=== PATIENT | male | born 1960 | race African-American/Black ===

== ENCOUNTER 2018-04-10 21:51 | Inpatient (IN) ==
[2018-04-10] MEDS ORDERED: Labetalol HCl Inj 100 MG/20 ML Vial IV.PUSH ONE (22:04)
--- NOTE | 2018-04-10 22:04 | ED ---
HPI General Chief complaint: Wound/Laceration Stated complaint: Medcial Time Seen by Provider: 04/10/18 21:54 Source: family Mode of arrival: EMS Limitations: other (The patient has a prior history of stroke with expressive aphasia) History of Present Illness HPI narrative: The patient is a 57 year old male who presents to the [facility] emergency department with a history of approximately 30-40 minutes prior to arrival standing up from the couch after watching television at which time his fiance noted that he was bleeding heavily from his neck. The patient has a recent history of carotid surgery on the left side on March 27 in [place]. She is unsure of what type of surgery was done, however she reports that it was done because of the blockage in the carotid artery. She reports that he does have a prior history of stroke in 2016 with residual weakness on his right side and an expressive aphasia. She reports that he has memory difficulties related to his prior stroke. She reports that in January he also had 2 small strokes. He is on Plavix because of his prior history of stroke. The patient was noted by fire rescue to have a pulsatile bleed from the left side of his neck. Pressure was applied. Bleeding was able to be controlled, however the patient was noted to have an expanding hematoma of the left side of the neck. The patient was noted to have an episode of what appeared to be possible seizure versus syncope upon ambulance services arrival to have an episode of syncope, versus seizure activity where his eyes rolled back in his head deviated to the right side associated with a brief episode of shaking. The patient reports having pain to the left side of his neck. The patient denies having any pain at any other location. On review of systems otherwise, patient denies having any chest pain, shortness of breath, abdominal pain, vomiting, or diarrhea. Related Data Allergies Allergy/AdvReac Type Severity Reaction Status Date / Time No Known Allergies Allergy Verified 04/10/18 21:54 Review of Systems ROS: all other systems reviewed are negative PMFSH History History Provided By: Family Member Social History Social History Substance History: No History of Abuse Second Hand Smoke Exposure: No Smoking Status: Never smoker How Often Do You Have a Drink Containing Alcohol: Never Recent Travel in [facility] within the Last 8 Weeks: No Recent Out of Country Travel within the Last 8 Weeks: No Exam Const General: cooperative and acute distress Nutritional Appearance: well nourished Orientation: alert and awake [facility] Head: normocephalic and atraumatic Nose: no nasal discharge and no epistaxis Mouth: moist mucous membranes Throat: posterior oropharynx normal and uvula midline Eyes Sclera: normal sclerae Pupils: PERRL Neck Neck: trachea midline, no JVD and other Resp Effort & Inspection: no use of accessory muscles Auscultation: clear to auscultation bilaterally Cardio Rate: regular rate Rhythm: regular rhythm Heart Sounds: no murmurs GI Inspection: non-distended Palpation: soft, no hepatosplenomegaly, no guarding, not rigid and nontender Auscultation: normal bowel sounds Back/Spine/Pelvis Back: no CVA tenderness Skin General: dry skin (warm) Neuro General: alert, awake and other (The patient has an expressive aphasia which reportedly has been present since his stroke in 2017. The patient has residual weakness of the right upper and right lower extremity also related to a prior stroke from 2017. No new neurologic findings according to the patient's family member at the bedside.) Speech: expressive aphasia Extrem General: normal to inspection (This pulses in all 4 extremities.), no calf tenderness, no clubbing, no cyanosis and edema (Trace pedal edema bilateral lower extremities.) Laterality: bilaterally Psych Mood: congruent mood Affect: normal affect Judgment: judgment good Course Initial Documented Vital Signs Pulse Rate 75 04/10/18 21:53 Respiratory Rate 17 04/10/18 21:53 Blood Pressure 179/88 H 04/10/18 21:53 Pulse Oximetry 100 04/10/18 21:53 Last Documented Vital Signs Temperature 98.9 F 04/11/18 04:00 Pulse Rate 98 H 04/11/18 04:00 Respiratory Rate 16 04/11/18 04:00 Blood Pressure 151/84 H 04/11/18 04:00 Pulse Oximetry 100 04/11/18 04:00 Critical Care Time Critical Care Time: Yes Total Critical Care Time: 32 Attestation: Aggregate critical care time was 32 minutes. Time to perform other separately billable procedures was not included in the critical care time. My time did not include minutes spent treating any other patients simultaneously or on activities that did not directly contribute to the patient's treatment. The services I provided to this patient were to treat and/or prevent clinically significant deterioration that could result in: Hemorrhagic shock, versus , versus respiratory failure from expanding hematoma I provided critical care services requiring my management, as noted below: Chart data review, documentation time, medication orders and management, vital sign assessments/reviewing monitor data, ordering and reviewing lab tests, ordering and interpreting/reviewing x-rays and diagnostic studies, care of the patient and discussion of the patient with the admitting physicians. Medical Decision Making MDM Narrative Medical decision making narrative: During the course of the patient's emergency department visit, the patient's history, examination, and differential diagnosis were reviewed with the patient and the patient's family at the bedside. The patient was placed on a alternative medicine practitioner with oximetry and frequent blood pressure monitoring. The patient had IV access obtained and blood work sent for analysis. Evaluation was started regarding the patient's pulsatile bleeding from the left side of his neck status post carotid surgery on the left. Emergency release blood will be obtained as there was reportedly an extensive amount of bleeding at the scene. The patient's initial blood pressure was noted to be 200 systolic, therefore labetalol will be administered at 10 mg IV. A call was urgently placed out to the vascular surgeon on-call, Dr. Rubin, I spoke to him at 9:50PM. He is on his way in to evaluate the patient. Direct pressure was able to be removed from the patient's left side of the neck and a hematoma was noted. No active bleeding was noted. Dr. Rubin requested that a CTA be ordered while he is on his way. The patient's diagnostic studies are remarkable for a white count of 9.2, hemoglobin 11.2, platelets 334 with a normal differential, PT 10, PTT 21.4, fibrinogen 466. Chemistry is remarkable for an i-STAT that shows a normal creatinine of 1.0, glucose 350. The patient's CTA of the neck shows no significant carotid stenosis, large hematoma in the left side of the neck measuring 4.8 x 3[address] Rubin arrived at the patient's bedside and is accompanying the patient urgently to the emergency OR for repair of his carotid. A call was placed out to the control systems eng. I spoke to Dr. Garces regarding this patient's case. He did evaluate the patient in the emergency department prior to the patient going to the OR. The patient's results were discussed with the patient, including the plan of care. I explained that further testing and/ or monitoring is indicated based on the patient's history, examination, and/ or laboratory findings. Therefore, I recommended admission for additional evaluation. The patient expressed understanding and was agreeable with this plan. The patient was admitted to the hospital in critical condition and sent to a bed under the care of the control systems eng with a consultation to . Medical Screen Exam Complete: Yes Emergency Medical Condition: Yes Medical Records Medical records reviewed: Yes I reviewed the patient's medical records. Lab Data Lab results reviewed: Yes I reviewed the patient's lab results. Result diagrams: 04/11/18 05:30 04/11/18 05:30 Lab Results 04/10/18 04/10/18 04/10/18 Range/Units 21:55 21:56 21:56 WBC (4.0-11.0) th/mm3 RBC (4.50-5.90) mil/mm3 Hgb (13.0-17.0) gm/dL POC Hgb (Calc) (13.0-17.0) g/dL Hct (39.0-51.0) % POC Hct (39-51.0) % MCV (80.0-100.0) fL MCH (27.0-34.0) pg MCHC (32.0-36.0) % RDW (11.6-17.2) % Plt Count (150-450) th/mm3 MPV (7.0-11.0) fL Neut % (Auto) (16.0-70.0) % Lymph % (Auto) (9.0-44.0) % Twiggs % (Auto) (0.0-8.0) % Eos % (Auto) (0.0-4.0) % Baso % (Auto) (0.0-2.0) % Neut # (Auto) (1.8-7.7) th/mm3 Lymph # (Auto) (1.0-4.8) th/mm3 Twiggs # (Auto) (0.0-0.9) th/mm3 Eos # (Auto) (0.0-0.4) th/mm3 Baso # (Auto) (0.0-0.2) th/mm3 WBC Differential Differential Comment PT (9.8-11.6) sec INR Ratio APTT (23.4-31.7) sec Fibrinogen Cancelled Puncture Site Patient Temperature O2 Saturation (90-100) % ABG pH (7.380-7.420) ABG pCO2 (38-42) mmHg ABG pO2 (61-120) mmHG ABG HCO3 (22-26) mmol/L ABG O2 Content (12.0-20.0) Vol % ABG Base Excess (-2-2) mmol/L ABG Methemoglobin (0-2) % Hemoglobin (12.0-16.0) G/DL Carboxyhemoglobin (0-4) % O2 Delivery Device Inspired O2 % Critical Value POC Sodium (137-144) mmol/L Sodium (136-145) meq/L POC Potassium (3.6-5.0) mmol/L Potassium (3.5-5.1) meq/L POC Chloride (102-111) mmol/L Chloride (98-107) meq/L Carbon Dioxide (21.0-32.0) meq/L Anion Gap (5-15) meq/L POC BUN (5-21) mg/dL BUN (7-18) mg/dL Creatinine (0.60-1.30) mg/dL POC Creatinine (0.6-1.3) mg/dL Estimated GFR (>89) mL/min POC Glucose 347 H (68-110) mg/dl Random Glucose (74-106) mg/dL Calcium (8.5-10.1) mg/dL Phosphorus (2.5-4.9) mg/dL Magnesium (1.5-2.5) mg/dL Total Bilirubin (0.2-1.0) mg/dL AST (15-37) U/L ALT (12-78) U/L Alkaline Phosphatase (45-117) U/L Troponin I (0.02-0.05) ng/mL Total Protein (6.4-8.2) g/dL Albumin (3.4-5.0) g/dL Blood Type B Positive Blood Type Recheck Required Antibody Screen Negative MTS Gel Crossmatch 04/10/18 04/10/18 04/10/18 Range/Units 21:56 21:56 21:56 WBC 9.2 (4.0-11.0) th/mm3 RBC 3.96 L (4.50-5.90) mil/mm3 Hgb 11.2 L (13.0-17.0) gm/dL POC Hgb (Calc) (13.0-17.0) g/dL Hct 32.2 L (39.0-51.0) % POC Hct (39-51.0) % MCV 81.4 (80.0-100.0) fL MCH 28.4 (27.0-34.0) pg MCHC 34.9 (32.0-36.0) % RDW 13.4 (11.6-17.2) % Plt Count 334 (150-450) th/mm3 MPV 7.1 (7.0-11.0) fL Neut % (Auto) 57.6 (16.0-70.0) % Lymph % (Auto) 33.0 (9.0-44.0) % Twiggs % (Auto) 6.4 (0.0-8.0) % Eos % (Auto) 2.4 (0.0-4.0) % Baso % (Auto) 0.6 (0.0-2.0) % Neut # (Auto) 5.3 (1.8-7.7) th/mm3 Lymph # (Auto) 3.0 (1.0-4.8) th/mm3 Twiggs # (Auto) 0.6 (0.0-0.9) th/mm3 Eos # (Auto) 0.2 (0.0-0.4) th/mm3 Baso # (Auto) 0.1 (0.0-0.2) th/mm3 WBC Differential . Differential Comment Auto diff final PT 10.0 (9.8-11.6) sec INR 1.0 Ratio APTT 21.4 L (23.4-31.7) sec Fibrinogen 466 H Puncture Site Patient Temperature O2 Saturation (90-100) % ABG pH (7.380-7.420) ABG pCO2 (38-42) mmHg ABG pO2 (61-120) mmHG ABG HCO3 (22-26) mmol/L ABG O2 Content (12.0-20.0) Vol % ABG Base Excess (-2-2) mmol/L ABG Methemoglobin (0-2) % Hemoglobin (12.0-16.0) G/DL Carboxyhemoglobin (0-4) % O2 Delivery Device Inspired O2 % Critical Value POC Sodium (137-144) mmol/L Sodium (136-145) meq/L POC Potassium (3.6-5.0) mmol/L Potassium (3.5-5.1) meq/L POC Chloride (102-111) mmol/L Chloride (98-107) meq/L Carbon Dioxide (21.0-32.0) meq/L Anion Gap (5-15) meq/L POC BUN (5-21) mg/dL BUN (7-18) mg/dL Creatinine (0.60-1.30) mg/dL POC Creatinine (0.6-1.3) mg/dL Estimated GFR (>89) mL/min POC Glucose (68-110) mg/dl Random Glucose (74-106) mg/dL Calcium (8.5-10.1) mg/dL Phosphorus (2.5-4.9) mg/dL Magnesium (1.5-2.5) mg/dL Total Bilirubin (0.2-1.0) mg/dL AST (15-37) U/L ALT (12-78) U/L Alkaline Phosphatase (45-117) U/L Troponin I Less than 0.02 L (0.02-0.05) ng/mL Total Protein (6.4-8.2) g/dL Albumin (3.4-5.0) g/dL Blood Type Blood Type Recheck Antibody Screen MTS Gel Crossmatch 04/10/18 04/10/18 04/10/18 Range/Units 21:56 23:14 23:29 WBC (4.0-11.0) th/mm3 RBC (4.50-5.90) mil/mm3 Hgb (13.0-17.0) gm/dL POC Hgb (Calc) 10.2 L (13.0-17.0) g/dL Hct (39.0-51.0) % POC Hct 30.0 L (39-51.0) % MCV (80.0-100.0) fL MCH (27.0-34.0) pg MCHC (32.0-36.0) % RDW (11.6-17.2) % Plt Count (150-450) th/mm3 MPV (7.0-11.0) fL Neut % (Auto) (16.0-70.0) % Lymph % (Auto) (9.0-44.0) % Twiggs % (Auto) (0.0-8.0) % Eos % (Auto) (0.0-4.0) % Baso % (Auto) (0.0-2.0) % Neut # (Auto) (1.8-7.7) th/mm3 Lymph # (Auto) (1.0-4.8) th/mm3 Twiggs # (Auto) (0.0-0.9) th/mm3 Eos # (Auto) (0.0-0.4) th/mm3 Baso # (Auto) (0.0-0.2) th/mm3 WBC Differential Differential Comment PT (9.8-11.6) sec INR Ratio APTT (23.4-31.7) sec Fibrinogen Puncture Site Art line Patient Temperature 98.6 O2 Saturation 97 (90-100) % ABG pH 7.42 (7.380-7.420) ABG pCO2 38 (38-42) mmHg ABG pO2 315 H (61-120) mmHG ABG HCO3 24 (22-26) mmol/L ABG O2 Content 16.9 (12.0-20.0) Vol % ABG Base Excess -0.2 (-2-2) mmol/L ABG Methemoglobin 2.0 (0-2) % Hemoglobin 11.9 L (12.0-16.0) G/DL Carboxyhemoglobin 0.5 (0-4) % O2 Delivery Device O.r. gas Inspired O2 % Critical Value No POC Sodium 138 (137-144) mmol/L Sodium (136-145) meq/L POC Potassium 3.7 (3.6-5.0) mmol/L Potassium (3.5-5.1) meq/L POC Chloride 99 L (102-111) mmol/L Chloride (98-107) meq/L Carbon Dioxide (21.0-32.0) meq/L Anion Gap (5-15) meq/L POC BUN 14 (5-21) mg/dL BUN (7-18) mg/dL Creatinine (0.60-1.30) mg/dL POC Creatinine 1.0 (0.6-1.3) mg/dL Estimated GFR (>89) mL/min POC Glucose 350 H (68-110) mg/dl Random Glucose (74-106) mg/dL Calcium (8.5-10.1) mg/dL Phosphorus (2.5-4.9) mg/dL Magnesium (1.5-2.5) mg/dL Total Bilirubin (0.2-1.0) mg/dL AST (15-37) U/L ALT (12-78) U/L Alkaline Phosphatase (45-117) U/L Troponin I (0.02-0.05) ng/mL Total Protein (6.4-8.2) g/dL Albumin (3.4-5.0) g/dL Blood Type Blood Type Recheck Antibody Screen MTS Gel Crossmatch See Detail 04/10/18 04/11/18 04/11/18 Range/Units 23:50 00:35 00:35 WBC 15.2 H D (4.0-11.0) th/mm3 RBC 3.20 L (4.50-5.90) mil/mm3 Hgb 9.0 L D (13.0-17.0) gm/dL POC Hgb (Calc) (13.0-17.0) g/dL Hct 25.9 L (39.0-51.0) % POC Hct (39-51.0) % MCV 81.1 (80.0-100.0) fL MCH 28.2 (27.0-34.0) pg MCHC 34.8 (32.0-36.0) % RDW 13.4 (11.6-17.2) % Plt Count 289 (150-450) th/mm3 MPV 7.2 (7.0-11.0) fL Neut % (Auto) 83.0 H (16.0-70.0) % Lymph % (Auto) 12.1 (9.0-44.0) % Twiggs % (Auto) 3.8 (0.0-8.0) % Eos % (Auto) 0.9 (0.0-4.0) % Baso % (Auto) 0.2 (0.0-2.0) % Neut # (Auto) 12.6 H (1.8-7.7) th/mm3 Lymph # (Auto) 1.8 (1.0-4.8) th/mm3 Twiggs # (Auto) 0.6 (0.0-0.9) th/mm3 Eos # (Auto) 0.1 (0.0-0.4) th/mm3 Baso # (Auto) 0.0 (0.0-0.2) th/mm3 WBC Differential . Differential Comment Auto diff final PT (9.8-11.6) sec INR Ratio APTT (23.4-31.7) sec Fibrinogen Puncture Site Art line Patient Temperature 98.6 O2 Saturation 97 (90-100) % ABG pH 7.47 H (7.380-7.420) ABG pCO2 33 L (38-42) mmHg ABG pO2 276 H (61-120) mmHG ABG HCO3 24 (22-26) mmol/L ABG O2 Content 13.9 (12.0-20.0) Vol % ABG Base Excess 0.4 (-2-2) mmol/L ABG Methemoglobin 2.0 (0-2) % Hemoglobin 9.7 L (12.0-16.0) G/DL Carboxyhemoglobin 0.8 (0-4) % O2 Delivery Device O.r. gas Inspired O2 50 % Critical Value No POC Sodium (137-144) mmol/L Sodium (136-145) meq/L POC Potassium (3.6-5.0) mmol/L Potassium (3.5-5.1) meq/L POC Chloride (102-111) mmol/L Chloride (98-107) meq/L Carbon Dioxide (21.0-32.0) meq/L Anion Gap (5-15) meq/L POC BUN (5-21) mg/dL BUN (7-18) mg/dL Creatinine (0.60-1.30) mg/dL POC Creatinine (0.6-1.3) mg/dL Estimated GFR (>89) mL/min POC Glucose (68-110) mg/dl Random Glucose (74-106) mg/dL Calcium (8.5-10.1) mg/dL Phosphorus (2.5-4.9) mg/dL Magnesium (1.5-2.5) mg/dL Total Bilirubin (0.2-1.0) mg/dL AST (15-37) U/L ALT (12-78) U/L Alkaline Phosphatase (45-117) U/L Troponin I (0.02-0.05) ng/mL Total Protein (6.4-8.2) g/dL Albumin (3.4-5.0) g/dL Blood Type Blood Type Recheck Antibody Screen MTS Gel Crossmatch See Detail 04/11/18 04/11/18 04/11/18 Range/Units 01:32 01:32 05:30 WBC 14.0 H 16.6 H (4.0-11.0) th/mm3 RBC 3.02 L 3.85 L (4.50-5.90) mil/mm3 Hgb 8.5 L 11.1 L D (13.0-17.0) gm/dL POC Hgb (Calc) (13.0-17.0) g/dL Hct 24.3 L 31.7 L (39.0-51.0) % POC Hct (39-51.0) % MCV 80.5 82.4 (80.0-100.0) fL MCH 28.2 28.8 (27.0-34.0) pg MCHC 35.0 35.0 (32.0-36.0) % RDW 13.4 13.2 (11.6-17.2) % Plt Count 236 276 (150-450) th/mm3 MPV 7.2 7.1 (7.0-11.0) fL Neut % (Auto) 83.9 H 87.7 H (16.0-70.0) % Lymph % (Auto) 11.0 8.2 L (9.0-44.0) % Twiggs % (Auto) 4.4 3.7 (0.0-8.0) % Eos % (Auto) 0.5 0.1 (0.0-4.0) % Baso % (Auto) 0.2 0.3 (0.0-2.0) % Neut # (Auto) 11.8 H 14.6 H (1.8-7.7) th/mm3 Lymph # (Auto) 1.6 1.4 (1.0-4.8) th/mm3 Twiggs # (Auto) 0.6 0.6 (0.0-0.9) th/mm3 Eos # (Auto) 0.1 0.0 (0.0-0.4) th/mm3 Baso # (Auto) 0.0 0.0 (0.0-0.2) th/mm3 WBC Differential . . Differential Comment Auto diff final Auto diff final PT (9.8-11.6) sec INR Ratio APTT (23.4-31.7) sec Fibrinogen Puncture Site Art line Patient Temperature 98.6 O2 Saturation 97 (90-100) % ABG pH 7.45 H (7.380-7.420) ABG pCO2 36 L (38-42) mmHg ABG pO2 269 H (61-120) mmHG ABG HCO3 25 (22-26) mmol/L ABG O2 Content 12.9 (12.0-20.0) Vol % ABG Base Excess 0.9 (-2-2) mmol/L ABG Methemoglobin 1.9 (0-2) % Hemoglobin 9.0 L (12.0-16.0) G/DL Carboxyhemoglobin 0.9 (0-4) % O2 Delivery Device O.r. gas Inspired O2 50 % Critical Value No POC Sodium (137-144) mmol/L Sodium (136-145) meq/L POC Potassium (3.6-5.0) mmol/L Potassium (3.5-5.1) meq/L POC Chloride (102-111) mmol/L Chloride (98-107) meq/L Carbon Dioxide (21.0-32.0) meq/L Anion Gap (5-15) meq/L POC BUN (5-21) mg/dL BUN (7-18) mg/dL Creatinine (0.60-1.30) mg/dL POC Creatinine (0.6-1.3) mg/dL Estimated GFR (>89) mL/min POC Glucose (68-110) mg/dl Random Glucose (74-106) mg/dL Calcium (8.5-10.1) mg/dL Phosphorus (2.5-4.9) mg/dL Magnesium (1.5-2.5) mg/dL Total Bilirubin (0.2-1.0) mg/dL AST (15-37) U/L ALT (12-78) U/L Alkaline Phosphatase (45-117) U/L Troponin I (0.02-0.05) ng/mL Total Protein (6.4-8.2) g/dL Albumin (3.4-5.0) g/dL Blood Type Blood Type Recheck Antibody Screen MTS Gel Crossmatch 04/11/18 04/11/18 Range/Units 05:30 05:30 WBC (4.0-11.0) th/mm3 RBC (4.50-5.90) mil/mm3 Hgb (13.0-17.0) gm/dL POC Hgb (Calc) (13.0-17.0) g/dL Hct (39.0-51.0) % POC Hct (39-51.0) % MCV (80.0-100.0) fL MCH (27.0-34.0) pg MCHC (32.0-36.0) % RDW (11.6-17.2) % Plt Count (150-450) th/mm3 MPV (7.0-11.0) fL Neut % (Auto) (16.0-70.0) % Lymph % (Auto) (9.0-44.0) % Twiggs % (Auto) (0.0-8.0) % Eos % (Auto) (0.0-4.0) % Baso % (Auto) (0.0-2.0) % Neut # (Auto) (1.8-7.7) th/mm3 Lymph # (Auto) (1.0-4.8) th/mm3 Twiggs # (Auto) (0.0-0.9) th/mm3 Eos # (Auto) (0.0-0.4) th/mm3 Baso # (Auto) (0.0-0.2) th/mm3 WBC Differential Differential Comment PT (9.8-11.6) sec INR Ratio APTT 24.4 (23.4-31.7) sec Fibrinogen Puncture Site Patient Temperature O2 Saturation (90-100) % ABG pH (7.380-7.420) ABG pCO2 (38-42) mmHg ABG pO2 (61-120) mmHG ABG HCO3 (22-26) mmol/L ABG O2 Content (12.0-20.0) Vol % ABG Base Excess (-2-2) mmol/L ABG Methemoglobin (0-2) % Hemoglobin (12.0-16.0) G/DL Carboxyhemoglobin (0-4) % O2 Delivery Device Inspired O2 % Critical Value POC Sodium (137-144) mmol/L Sodium 139 (136-145) meq/L POC Potassium (3.6-5.0) mmol/L Potassium 4.1 (3.5-5.1) meq/L POC Chloride (102-111) mmol/L Chloride 103 (98-107) meq/L Carbon Dioxide 27.0 (21.0-32.0) meq/L Anion Gap 9 (5-15) meq/L POC BUN (5-21) mg/dL BUN 13 (7-18) mg/dL Creatinine 0.99 (0.60-1.30) mg/dL POC Creatinine (0.6-1.3) mg/dL Estimated GFR Greater than 89 (>89) mL/min POC Glucose (68-110) mg/dl Random Glucose 370 H (74-106) mg/dL Calcium 8.1 L (8.5-10.1) mg/dL Phosphorus 3.8 (2.5-4.9) mg/dL Magnesium 1.8 (1.5-2.5) mg/dL Total Bilirubin 0.5 (0.2-1.0) mg/dL AST 9 L (15-37) U/L ALT 19 (12-78) U/L Alkaline Phosphatase 118 H (45-117) U/L Troponin I (0.02-0.05) ng/mL Total Protein 6.4 (6.4-8.2) g/dL Albumin 2.9 L (3.4-5.0) g/dL Blood Type Blood Type Recheck Antibody Screen MTS Gel Crossmatch Imaging Data Radiologist's impression: Neck CTA 04/10/18 21:58 CONCLUSION: 1. No significant carotid stenosis. 2. Large hematoma left neck. Discharge Plan Discharge Disposition Patient Disposition: ED Admit(ED Internal Use Only) Discharge Order Discharge Orders: ED Use Only Admit Order (Routine); Ordered 04/10/18 Ordered By: Jessica Liz Discharge Details Diagnosis: Arterial hemorrhage, Post-op bleeding Physicians Team ED Provider: Jessica Liz Primary Care Provider: Primary Care Quin Kohler Attending Provider: Hernandez Garces Other Providers: Ray Rubin Status ED Status: Left Department Discharge Information Discharge Date/Time: 04/10/18 22:52
[2018-04-10 22:13] LABS: Baso # (Auto) 0.1 th/mm3 (0.0-0.2); Baso % (Auto) 0.6 % (0.0-2.0); Eos # (Auto) 0.2 th/mm3 (0.0-0.4); Eos % (Auto) 2.4 % (0.0-4.0); Hematocrit 32.2 % (39.0-51.0); Hemoglobin 11.2 gm/dL (13.0-17.0); Mean Corpuscular HGB Conc 34.9 % (32.0-36.0); Mean Corpuscular Hemoglobin 28.4 pg (27.0-34.0); Mean Corpuscular Volume 81.4 fL (80.0-100.0); Mean Platelet Volume 7.1 fL (7.0-11.0); Mono # (Auto) 0.6 th/mm3 (0.0-0.9); Mono % (Auto) 6.4 % (0.0-8.0); Neut # (Auto) 5.3 th/mm3 (1.8-7.7); Neut % (Auto) 57.6 % (16.0-70.0); Platelet Count 334 th/mm3 (150-450); Red Blood Count 3.96 mil/mm3 (4.50-5.90); Red Cell Distribution Width 13.4 % (11.6-17.2); White Blood Count 9.2 th/mm3 (4.0-11.0)
[2018-04-10] MEDS ORDERED: fentaNYL Citrate Inj 100 MCG/2 ML Ampul IV.PUSH ONE (22:20)
[2018-04-10] MEDS ORDERED: Heparin - SQ 10,000 UNITS/ML Vial ONE (22:28)
[2018-04-10] MEDS ORDERED: Heparin 10,000 UNITS/10 ML Vial (for IV use) ONE (22:28)
[2018-04-10] MEDS ORDERED: Thrombin Topical 20,000 UNIT Spray Kit TOPICAL ONE ×2 (22:28→22:41)
--- NOTE | 2018-04-10 22:30 | CT ---
EXAM DATE: 04/10/2018 10:23 PM EST AGE/SEX: 57 years / Male INDICATIONS: Recent left sided endartectomy that may have bleed out. CLINICAL DATA: This is the patient's initial encounter. Patient reports that signs and symptoms have been present for 1 day and indicates a pain score of 7/10. MEDICAL/SURGICAL HISTORY: . unable to get hx STAT exam . endartectomy Hernandez RADIATION DOSE: 28.74 CTDI (mGy) COMPARISON: No prior exams available for comparison. TECHNIQUE: Volumetric scanning was performed using a multirow detector CT scanner during bolus infus ion of 100ml ml Omnipaque 350 (iohexol) nonionic water-soluble contrast as a single exam dose. The data was postprocessed with a variety of visualization algorithms including full-volume maximum inte nsity projection, multiplanar sliding thin-slab reformation, curved-planar reformation, and surface-r endering techniques. Using automated exposure control and adjustment of the mA and/or kV according t o patient size, radiation dose was kept as low as reasonably achievable to obtain optimal diagnostic quality images. DICOM format image data is available electronically for review and comparison. FINDINGS: Aortic Arch: There is a three-vessel origin of the great vessels from the aorta. No evidence of ost ial narrowing Right Carotid: The common carotid artery is intact. Mild atherosclerotic changes within the proximal right internal carotid artery without stenosis. The external carotid artery is intact. Left Carotid: The common carotid artery is intact. Left carotid endarterectomy. No significant narro wing or stenosis. The external carotid artery is intact. Vertebrals: The vertebral arteries have a symmetric diameter. No stenotic lesions are seen. Other: Large hematoma in the left neck measures 4.8 x 3.9 x 5.7 cm. No extravasation of contrast. The re is some minimal gas in the soft tissues likely related to recent surgery. Percent stenosis is calculated using the diameter of the stenotic region over the diameter of the nor mal distal internal carotid artery. CONCLUSION: 1. No significant carotid stenosis. 2. Large hematoma left neck. Electronically signed by: Chi Francis MD Board Certified Radiologist 04/10/2018 10:29 PM EST
[2018-04-10] MEDS ORDERED: Bupivacaine 0.5% Inj 50 ML MDV Vial ONE (22:33)
[2018-04-10 22:35] LABS: Activated Partial Thrombo Time 21.4 sec (23.4-31.7)
[2018-04-10] MEDS ORDERED: Temazepam 15 MG Capsule PO PRN (22:35)
[2018-04-10] MEDS ORDERED: Bisacodyl 10 MG Supp RECTAL PRN (22:35)
--- NOTE | 2018-04-10 22:35 | P.HPCC ---
History of Present Illness Primary Care Physician: No Primary Care Physician History of Present Illness: 57 year old male presents with a history of approximately 30-40 minutes prior to arrival standing up from the couch after watching television at which time his fiance noted that he was bleeding heavily from his neck. The patient has a recent history of carotid surgery on the left side on March 27 in [place]. She is unsure of what type of surgery was done, however she reports that it was done because of the blockage in the carotid artery. 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 His fiance reports that he has memory difficulties related to his prior stroke. She reports that in January he also had 2 small strokes. He is on Plavix because of his prior history of stroke. The patient was noted by fire rescue to have a pulsatile bleed from the left side of his neck. Pressure was applied. Bleeding was able to be controlled, however the patient was noted to have an expanding hematoma of the left side of the neck. The patient was noted to have an episode of what appeared to be possible seizure versus syncope upon ambulance services arrival to have an episode of syncope, versus seizure activity where his eyes rolled back in his head deviated to the right side associated with a brief episode of shaking. He was taken emergently to operating room for excision of left carotid artery, left CCA to ICA bypass with 6mm PTFE and evacuation of edema. Inpatient Certification: I certify that the inpatient services were ordered in accordance with Medicare regulations governing the order. This includes certification that hospital inpatient services are reasonable and necessary and in the case of services not specified as inpatient-only under 42 CFR 419.22(n), that they are appropriately provided as inpatient services in accordance to with the 2-midnight benchmark under 43 CFR 412.3(e) Review of Systems unobtainable due to mental condition, unobtainable due to mental status PMFSH - History History Provided By: Family Member - Medical History Medical History: Medical History (Last Updated 04/10/18 @ 22:49 by Ray Rubin MD) Diabetes Hypertension Stroke - Surgical History Surgical History: Surgical History (Last Updated 04/10/18 @ 22:11 by Jessica Liz MD) Status post carotid surgery - Travel History Recent Travel in the [place] Within the Last 8 Weeks: No Recent Travel Out of the Country Within the Last 8 Weeks: No Medications and Allergies Active Medications: Active Medications Current Medications Acetaminophen (Tylenol) 650 mg PO Q6H PRN PRN Reason: PAIN 1-10 AND/OR FEVER >101F Al Hydroxide/Mg Hydroxide (Milk Of Magnesia Liq) 30 ml PO Q12H PRN PRN Reason: Mild Constipation Albuterol (Duoneb Neb (Prn)) 1 ampul NEB Q2HR NEB PRN PRN Reason: WHEEZING Bisacodyl (Dulcolax Supp) 10 mg RECTAL DAILY PRN PRN Reason: SEVERE CONSITIPATION Chlorhexidine Gluconate (Chlorhexidine 2% Cloth) 3 pack TOPICAL DAILY@0400 DIANE Stop: 04/16/18 03:59 Chlorhexidine Gluconate (Chlorhexidine 2% Cloth) 3 pack TOPICAL DAILY@0400 PRN PRN Reason: Extra cloth needed Stop: 04/16/18 03:59 Famotidine (Pepcid Pf Inj) 20 mg IV.PUSH Q12HR DIANE Hydromorphone HCl (Dilaudid Pf Inj) 1 mg IV.PUSH Q4H PRN PRN Reason: PAIN SCALE 6 TO 10 Sodium Chloride (Ns Inj) 1,000 mls @ 84 mls/hr IV.CONT .[id number] DIANE Last Admin: 04/11/18 03:23 Dose: 84 mls/hr Vancomycin HCl 1,000 mg/ (Sodium Chloride) 250 mls @ 250 mls/hr IV.SIG Q12H DIANE Piperacillin/Tazobactam/Dextrose (Zosyn 3.375 Gm Premix) 3.375 gm in 50 mls @ 100 mls/hr IV.SIG Q6H DIANE Lactulose (Lactulose Liq) 30 ml PO DAILY PRN PRN Reason: SEVERE CONSITIPATION Ondansetron HCl (Zofran Inj) 4 mg IV.PUSH Q6H PRN PRN Reason: NAUSEA OR VOMITING Senna/Docusate Sodium (Viviane-Colace) 1 tab PO BID DIANE Sennosides (Senokot) 17.2 mg PO Q12H PRN PRN Reason: Moderate Constipation Sodium Chloride (Ns Flush) 2 ml IV.FLUSH BID DIANE Sodium Chloride (Ns Flush) 2 ml IV.FLUSH PRN PRN PRN Reason: FLUSH AFTER USING IV ACCESS Temazepam (Restoril) 15 mg PO HS PRN PRN Reason: INSOMNIA Allergies Allergy/AdvReac Type Severity Reaction Status Date / Time No Known Allergies Allergy Verified 04/10/18 21:54 Results - Labs CBC & Chem 7: 04/11/18 01:32 Labs: Short CBC 04/10/18 Range/Units 21:56 WBC 9.2 (4.0-11.0) th/mm3 Hgb 11.2 L (13.0-17.0) gm/dL Hct 32.2 L (39.0-51.0) % Plt Count 334 (150-450) th/mm3 Cardiac Enzymes 04/10/18 Range/Units 21:56 Troponin I Less than 0.02 L (0.02-0.05) ng/mL - Imaging Impressions Neck CTA 04/10/18 21:58 CONCLUSION: 1. No significant carotid stenosis. 2. Large hematoma left neck. Exam Vital signs: Vital Signs 04/10/18 21:53 Pulse Rate 75 Respiratory Rate 17 Blood Pressure 179/88 H Pulse Oximetry 100 Intake & Output 04/10/18 04/10/18 04/11/18 06:59 18:59 06:59 Weight 72.575 kg - Constitutional moderate distress - Routine HEENT Exam Head: Present: atraumatic Eye: Present: normal accommodation ENT: Present: mucous membranes moist - Routine Neck Exam Absent: JVD, carotid bruit Comments: Status post left carotid bypass surgery, dressing without active extravasation. - Routine Respiratory Exam Absent: accessory muscle use, wheezes, crackles - Routine Cardiovascular Exam Present: RRR, S1, S2 - Routine Abdominal Exam Present: soft, normoactive bowel sounds - Routine Extremities Exam Absent: cyanosis, clubbing, edema - Routine Skin Exam Absent: cyanosis, erythema - Routine Neurological Exam Present: alert Septic Shock Reassessment Septic shock perfusion: reassessment completed Caprini VTE Risk Assessment Caprini VTE Risk Assessment: Moderate/High Risk (score >= 2) Caprini Risk Assessment Model: Point Value = 1 Point Value = 2 Point Value = 3 Point Value = 5 Age 41-60 Minor surgery BMI > 25 kg/m2 Swollen legs Varicose veins or History of unexplained or recurrent spontaneous Oral contraceptives or hormone replacement Sepsis (< 1 month) Serious lung disease, including pneumonia (< 1 month) Abnormal pulmonary function Acute myocardial infarction Congestive heart failure (< 1 month) History of inflammatory bowel disease Medical patient at bed rest Age 61-74 Arthroscopic surgery Major open surgery (> 45 min) Laparoscopic surgery (> 45 min) Malignancy Confined to bed (> 72 hours) Immobilizing plaster cast Central venous access Age >= 75 History of VTE Family history of VTE Factor V Leiden Prothrombin [id number] Lupus anticoagulant Anticardiolipin antibodies Elevated serum homocysteine Heparin-induced thrombocytopenia Other congenital or acquired thrombophilia Stroke (< 1 month) Elective arthroplasty Hip, pelvis, or leg fracture Acute spinal cord injury (< 1 month) Prophylaxis Regimen: Total Risk Factor Score Risk Level Prophylaxis Regimen 0-1 Low Early ambulation 2 Moderate Order ONE of the following: *Sequential Compression Device (SCD) *Heparin 5000 units SQ BID 3-4 Higher Order ONE of the following medications: *Heparin 5000 units SQ TID *Enoxaparin/Lovenox 40 mg SQ daily (WT < 150 kg, CrCl > 30 mL/min) *Enoxaparin/Lovenox 30 mg SQ daily (WT < 150 kg, CrCl > 10-29 mL/min) *Enoxaparin/Lovenox 30 mg SQ BID (WT < 150 kg, CrCl > 30 mL/min) AND/OR *Sequential Compression Device (SCD) 5 or more Highest Order ONE of the following medications: *Heparin 5000 units SQ TID (Preferred with Epidurals) *Enoxaparin/Lovenox 40 mg SQ daily (WT < 150 kg, CrCl > 30 mL/min) *Enoxaparin/Lovenox 30 mg SQ daily (WT < 150 kg, CrCl > 10-29 mL/min) *Enoxaparin/Lovenox 30 mg SQ BID (WT < 150 kg, CrCl > 30 mL/min) AND *Sequential Compression Device (SCD) Assessment and Plan - Assessment and Plan Plan: Acute post-operative left carotid hemorrhage -Status post Emergent neck exploration -CCA-ICA bypass -Possible prior surgery wound infection -Broad-spectrum antibiotic -BP control with SBP goal 140-160 -Further management per vascular surgery Prior surgery wound infection -Vancomycin/Zosyn -Blood cultures -Follow-up and de-escalate per sensitivity Diabetes -Insulin sliding scale Hypertension -Cleviprex drip as needed to keep SBP 140-160 Dyslipidemia -Atorvastatin DVT GI prophylaxis -Teds SCDs -Pharmacological DVT prophylaxis per vascular surgery -Pepcid 35 minutes of critical care
[2018-04-10] MEDS ORDERED: fentaNYL Citrate Inj 250 MCG/5 ML Ampul ONE (22:36)
[2018-04-10] MEDS ORDERED: Labetalol HCl Inj 20 MG/4 ML Vial IV.PUSH ONE (22:45)
--- NOTE | 2018-04-10 22:52 | P.CONVS ---
History of Present Illness Service: vascular surgery Consult date: 04/10/18 Reason for Consult: bleeding LEFT carotid Primary Care Provider: No Primary Care Physician Chief Complaint: 57 yo male with impressive LEFT neck bleeding History of Present Illness: 57 yo male with h/o L CEA 03/27 at OSH, was on couch this evening and had impressive bleeding from LEFT neck, pressure held and brought to ED. More pressure held and now has stable, firm LEFT neck hematoma. No airway compromise Has h/o CVA with mild RIGHT sided weakness. Much of history obtained from fiance who accompanies him Review of Systems All other systems reviewed negative except as stated in HPI PMFSH - History History Provided By: Family Member - Medical History Medical History: Medical History (Last Updated 04/10/18 @ 22:49 by Ray Rubin MD) Diabetes Hypertension Stroke - Surgical History Surgical History: Surgical History (Last Updated 04/10/18 @ 22:11 by Jessica Liz MD) Status post carotid surgery - Travel History Recent Travel in the [place] Within the Last 8 Weeks: No Recent Travel Out of the Country Within the Last 8 Weeks: No Medications and Allergies Active Medications: Active Medications Acetaminophen (Tylenol) 650 mg PO Q6H PRN PRN Reason: PAIN 1-10 AND/OR FEVER >101F Al Hydroxide/Mg Hydroxide (Milk Of Magnesia Liq) 30 ml PO Q12H PRN PRN Reason: Mild Constipation Albuterol (Duoneb Neb (Prn)) 1 ampul NEB Q2HR NEB PRN PRN Reason: WHEEZING Bisacodyl (Dulcolax Supp) 10 mg RECTAL DAILY PRN PRN Reason: SEVERE CONSITIPATION Chlorhexidine Gluconate (Chlorhexidine 2% Cloth) 3 pack TOPICAL DAILY@0400 DIANE Stop: 04/16/18 03:59 Chlorhexidine Gluconate (Chlorhexidine 2% Cloth) 3 pack TOPICAL DAILY@0400 PRN PRN Reason: Extra cloth needed Stop: 04/16/18 03:59 Famotidine (Pepcid Pf Inj) 20 mg IV.PUSH Q12HR DIANE Hydromorphone HCl (Dilaudid Pf Inj) 1 mg IV.PUSH Q4H PRN PRN Reason: PAIN SCALE 6 TO 10 Sodium Chloride (Ns Inj) 1,000 mls @ 84 mls/hr IV.CONT .[id number] DIANE Lactulose (Lactulose Liq) 30 ml PO DAILY PRN PRN Reason: SEVERE CONSITIPATION Ondansetron HCl (Zofran Inj) 4 mg IV.PUSH Q6H PRN PRN Reason: NAUSEA OR VOMITING Senna/Docusate Sodium (Viviane-Colace) 1 tab PO BID DIANE Sennosides (Senokot) 17.2 mg PO Q12H PRN PRN Reason: Moderate Constipation Sodium Chloride (Ns Flush) 2 ml IV.FLUSH BID DIANE Sodium Chloride (Ns Flush) 2 ml IV.FLUSH PRN PRN PRN Reason: FLUSH AFTER USING IV ACCESS Temazepam (Restoril) 15 mg PO HS PRN PRN Reason: INSOMNIA Allergies Allergy/AdvReac Type Severity Reaction Status Date / Time No Known Allergies Allergy Verified 04/10/18 21:54 Physical Exam Vital Signs / I&O: Vital Signs 04/10/18 21:53 Pulse Rate 75 Respiratory Rate 17 Blood Pressure 179/88 H Pulse Oximetry 100 Intake & Output 04/10/18 04/10/18 04/11/18 06:59 18:59 06:59 Weight 72.575 kg Neuro: alert, answers questions R sided weakness, 4/5 HEENT: NC/AT; LEFT neck hematoma ,tense oblique LEFT neck incision Heart: reg rate Lungs: nonlabored Vascular: palpable UE pulses Laboratory Results - last 24 hr 04/10/18 04/10/18 04/10/18 21:56 21:56 21:56 WBC RBC Hgb POC Hgb (Calc) Hct POC Hct MCV MCH MCHC RDW Plt Count MPV Neut % (Auto) Lymph % (Auto) [place] % (Auto) Eos % (Auto) Baso % (Auto) Neut # (Auto) Lymph # (Auto) [place] # (Auto) Eos # (Auto) Baso # (Auto) WBC Differential Differential Comment PT INR APTT Fibrinogen Cancelled POC Sodium POC Potassium POC Chloride POC BUN POC Creatinine POC Glucose 347 H Troponin I Less than 0.02 L 04/10/18 04/10/18 04/10/18 21:56 21:56 21:56 WBC 9.2 RBC 3.96 L Hgb 11.2 L POC Hgb (Calc) 10.2 L Hct 32.2 L POC Hct 30.0 L MCV 81.4 MCH 28.4 MCHC 34.9 RDW 13.4 Plt Count 334 MPV 7.1 Neut % (Auto) 57.6 Lymph % (Auto) 33.0 [place] % (Auto) 6.4 Eos % (Auto) 2.4 Baso % (Auto) 0.6 Neut # (Auto) 5.3 Lymph # (Auto) 3.0 [place] # (Auto) 0.6 Eos # (Auto) 0.2 Baso # (Auto) 0.1 WBC Differential . Differential Comment Auto diff final PT 10.0 INR 1.0 APTT 21.4 L Fibrinogen 466 H POC Sodium 138 POC Potassium 3.7 POC Chloride 99 L POC BUN 14 POC Creatinine 1.0 POC Glucose 350 H Troponin I Impressions Neck CTA 04/10/18 21:58 CONCLUSION: 1. No significant carotid stenosis. 2. Large hematoma left neck. Assessment and Plan - Plan acute post-operative LEFT carotid hemorrhage Emergent neck exploration and likely CCA-ICA bypass discussed risks with patient and fiance. To OR emergently. Fiance [phone]
[2018-04-10] MEDS ORDERED: Succinylcholine Inj 100 MG/5 ML Syringe IV.PUSH ONE (22:56)
[2018-04-10] MEDS ORDERED: Phenylephrine/NS 1000 MCG/10ML Syringe IV.PUSH ONE (22:56)
[2018-04-10] MEDS ORDERED: Normosol-R pH 7.4 Inj 3,000 ML IV.CONT ONE (22:56)
[2018-04-10] MEDS ORDERED: Lidocaine PF 1% Inj 5 ML Syringe OTHER ONE (22:56)
[2018-04-10] MEDS ORDERED: Glycopyrrolate Inj 1 MG/5 ML Syringe IV.PUSH ONE (22:56)
[2018-04-10] MEDS ORDERED: Sodium Chlor 0.9% Inj 500 ML IV.CONT ONE (22:56)
[2018-04-10 23:28] LABS: ABG Base Excess -0.2 mmol/L (-2-2); ABG PCO2 38 mmHg (38-42); ABG PO2 315 mmHG (61-120)
[2018-04-10] MEDS ORDERED: Clevidipine Inj 25 MG/50 ML VIAL ONE (23:43)
[2018-04-10] MEDS ORDERED: Sugammadex Inj 200 MG/2 ML Vial IV.PUSH ONE (23:43)
[2018-04-11] MEDS ORDERED: Heparin - SQ 10,000 UNITS/ML Vial ONE (00:31)
[2018-04-11] MEDS ORDERED: Heparin 10,000 UNITS/10 ML Vial (for IV use) ONE (00:32)
[2018-04-11 00:46] LABS: ABG Base Excess 0.4 mmol/L (-2-2); ABG PCO2 33 mmHg (38-42); ABG PO2 276 mmHG (61-120)
[2018-04-11 00:49] LABS: Baso % (Auto) 0.2 % (0.0-2.0); Eos # (Auto) 0.1 th/mm3 (0.0-0.4); Eos % (Auto) 0.9 % (0.0-4.0); Hematocrit 25.9 % (39.0-51.0); Lymph # (Auto) 1.8 th/mm3 (1.0-4.8); Lymph % (Auto) 12.1 % (9.0-44.0); Mean Corpuscular HGB Conc 34.8 % (32.0-36.0); Mean Corpuscular Hemoglobin 28.2 pg (27.0-34.0); Mean Corpuscular Volume 81.1 fL (80.0-100.0); Mean Platelet Volume 7.2 fL (7.0-11.0); Mono # (Auto) 0.6 th/mm3 (0.0-0.9); Mono % (Auto) 3.8 % (0.0-8.0); Neut # (Auto) 12.6 th/mm3 (1.8-7.7); Platelet Count 289 th/mm3 (150-450); Red Cell Distribution Width 13.4 % (11.6-17.2); White Blood Count 15.2 th/mm3 (4.0-11.0)
[2018-04-11] MEDS ORDERED: Protamine Sulfate Inj 50 MG/5 ML Vial ONE ×2 (01:07)
[2018-04-11] MEDS ORDERED: Thrombin Topical 20,000 UNIT Spray Kit TOPICAL ONE (01:16)
[2018-04-11] MEDS ORDERED: Thrombin Topical Soln 20,000 UNIT Vial TOPICAL ONE (01:26)
[2018-04-11 01:45] LABS: ABG Base Excess 0.9 mmol/L (-2-2); ABG PCO2 36 mmHg (38-42); ABG PO2 269 mmHG (61-120)
[2018-04-11 01:59] LABS: Baso % (Auto) 0.2 % (0.0-2.0); Eos # (Auto) 0.1 th/mm3 (0.0-0.4); Eos % (Auto) 0.5 % (0.0-4.0); Hematocrit 24.3 % (39.0-51.0); Hemoglobin 8.5 gm/dL (13.0-17.0); Lymph # (Auto) 1.6 th/mm3 (1.0-4.8); Mean Corpuscular Hemoglobin 28.2 pg (27.0-34.0); Mean Corpuscular Volume 80.5 fL (80.0-100.0); Mean Platelet Volume 7.2 fL (7.0-11.0); Mono # (Auto) 0.6 th/mm3 (0.0-0.9); Mono % (Auto) 4.4 % (0.0-8.0); Neut # (Auto) 11.8 th/mm3 (1.8-7.7); Neut % (Auto) 83.9 % (16.0-70.0); Platelet Count 236 th/mm3 (150-450); Red Blood Count 3.02 mil/mm3 (4.50-5.90); Red Cell Distribution Width 13.4 % (11.6-17.2)
--- NOTE | 2018-04-11 02:01 | P.OP ---
- Preoperative Diagnosis (1) Arterial hemorrhage (2) Post-op bleeding Date of procedure: 04/11/18 Procedure: 1. Excision of LEFT carotid artery 2. L CCA to ICA bypass with 6mm PTFE 3. Evacuation of hematoma Implants: 6mm PTFE Anesthesia: GETA Surgeon: Ray Rubin MD Shot Coat Tender: Audrey Leslie Estimated blood loss (mL): 1,200 IV fluids (mL): 3,800 Urine output (mL): 500 Pathology: other (hematoma for cultures) Operation and Findings: disrupted carotid patch with large hematoma excised entire carotid and performed bypass from CCA to ICA + Doppler signal in distal ICA at end of case
[2018-04-11] MEDS ORDERED: Morphine Inj 4 MG/ML Vial ONE (02:57)
[2018-04-11] MEDS: Sod Chloride 0.9% Inj 1,000 ML IV.CONT SCH ×2 (03:23→09:40)
[2018-04-11] MEDS ORDERED: Vancomycin Consult Pharmacy OTHER PRN (03:55)
[2018-04-11] MEDS ORDERED: Chlorhexidine Gluconate 2% 1 Pack (2 Cloths) TOPICAL PRN (04:00)
[2018-04-11] MEDS: Piperacil/Tazo 3.375 GM Premix 3.375 GM/50 ML PIGGYBACK IV.SIG SCH ×4 (04:14→21:06)
[2018-04-11] MEDS ORDERED: Clevidipine Inj 25 MG/50 ML VIAL ONE (04:26)
[2018-04-11] MEDS: Chlorhexidine Gluconate 2% 1 Pack (2 Cloths) TOPICAL SCH (05:16)
[2018-04-11] MEDS: Clevidipine Inj 25 MG/50 ML VIAL IV.CONT PRN ×8 (05:16→23:40)
[2018-04-11 05:59] LABS: Baso % (Auto) 0.3 % (0.0-2.0); Eos % (Auto) 0.1 % (0.0-4.0); Hematocrit 31.7 % (39.0-51.0); Hemoglobin 11.1 gm/dL (13.0-17.0); Lymph # (Auto) 1.4 th/mm3 (1.0-4.8); Lymph % (Auto) 8.2 % (9.0-44.0); Mean Corpuscular Hemoglobin 28.8 pg (27.0-34.0); Mean Corpuscular Volume 82.4 fL (80.0-100.0); Mean Platelet Volume 7.1 fL (7.0-11.0); Mono # (Auto) 0.6 th/mm3 (0.0-0.9); Mono % (Auto) 3.7 % (0.0-8.0); Neut # (Auto) 14.6 th/mm3 (1.8-7.7); Neut % (Auto) 87.7 % (16.0-70.0); Platelet Count 276 th/mm3 (150-450); Red Blood Count 3.85 mil/mm3 (4.50-5.90); Red Cell Distribution Width 13.2 % (11.6-17.2); White Blood Count 16.6 th/mm3 (4.0-11.0)
[2018-04-11 06:23] LABS: Albumin 2.9 g/dL (3.4-5.0); Anion Gap 9 meq/L (5-15); Aspartate Aminotransferase 9 U/L (15-37); Blood Urea Nitrogen 13 mg/dL (7-18); Calcium 8.1 mg/dL (8.5-10.1); Chloride 103 meq/L (98-107); Glomerular Filtration Rate Greater Than 89 mL/min (>89); Glucose,Random 370 mg/dL (74-106); Magnesium 1.8 mg/dL (1.5-2.5); Potassium 4.1 meq/L (3.5-5.1); Sodium 139 meq/L (136-145)
[2018-04-11 06:26] LABS: Alanine Aminotransferase 19 U/L (12-78); Alkaline Phosphatase 118 U/L (45-117); Phosphorus 3.8 mg/dL (2.5-4.9); Total Protein 6.4 g/dL (6.4-8.2)
--- NOTE | 2018-04-11 08:40 | MP ---
cc: Ray Rubin MD DATE OF OPERATION: PREOPERATIVE DIAGNOSIS: Carotid exsanguination, likely infected carotid patch . POSTOPERATIVE DIAGNOSIS: Carotid exsanguination, likely infected carotid patch. PROCEDURE PERFORMED: 1. Excision of infected left carotid artery. 2. Common carotid artery to internal carotid artery bypass with 6 mm PTFE. 3. Evacuation of neck hematoma. ATTENDING SURGEON: Ray Rubin MD. PRINT LINE SUPERVISOR SURGEON: Audrey Leslie. ANESTHESIA: General. INDICATIONS: Mr. Boo is a 57-year-old gentleman with a history of multiple strokes and residual right-sided weakness, who underwent a left carotid endarterectomy on 03/27 at an outside institution. He presented with a sentinel near exsanguinating hemorrhage from his left neck and manual pressure was held. I met him in the emergency department. He was taken to the operating room emergently for carotid exploration and revision. Intraoperatively, it was found that he had poor healing around his carotid patch. The patch had significant amount of hematoma around it and the entire patch was excised with the external carotid artery being ligated. A bypass was performed from the common carotid to the internal carotid artery. DESCRIPTION OF PROCEDURE: Informed consent was discussed with the patient, but it was an emergency procedure and so no formal consent was obtained. However, 2 attending surgeons agreed this is a surgical life saving emergency. The patient was taken to the operating room and placed supine on the operating table. An appropriate timeout was taken to ensure the patient's identity, operative site, and planned procedure. One gram of vancomycin was initiated prior to skin incision and will be continued postoperatively for ongoing therapy. Everyone in the room agreed with the timeout and we proceeded. His left neck was prepped and draped and a transverse incision was made just above the clavicle, carried down through subcutaneous tissue with electrocautery. The head of the sternocleidomastoid was divided and the common carotid artery was identified and encircled with a vessel loop, thereby obtaining proximal control. We then extended the incision cranially along the previous incision and a large hematoma was encountered. The patient was systemically heparinized; and throughout the remainder of the case, the ACT was maintained greater than 250. Proximal control of the common carotid artery at base of neck was obtained with a profunda clamp and the entire carotid hematoma periarterial hematoma was evacuated and the sample sent for culture. Dense scar tissue was noted; and with tedious dissection, we were able to dissect out the entire common and internal carotid arteries and circumferentially distally above the previous patch, which was noted to be frankly disrupted. The patch had to be temporized with several Prolene sutures for hemostasis. The distal ICA was then clamped and the #11 blade was used to incise the previous bovine pericardial patch. The external carotid artery was oversewn from the inside with 4-0 and 5-0 Prolene suture. The common carotid artery and internal carotid artery were resected, including the previous patch. The internal distally was bevelled as was the common carotid artery proximally and 6 mm PTFE was brought up onto the field and sewn end-to-end by beveling the PTFE and performing an end-to-end anastomosis with running 6-0 Prolene suture. We then cut the graft to an appropriate length, doubled it, and sewn end-to-end to the common carotid artery proximally with running 5-0 Prolene suture. At the completion, the clamps were sequentially released and hemostasis was noted with all anastomoses and the ICA clamp was released last. There was an excellent Doppler signal in the distal ICA. The wound was made hemostatic. The heparin was reversed with protamine. The wound was then closed with 2-0 Polysorb, 3-0 Polysorb, and 2-0 nylons. The sponge and needle counts were correct at the end of the case. The patient was extubated and transported to ICU in critical condition. MD SHAINA Penny/raul , 06:52 AM , 07:00 AM
[2018-04-11] MEDS: Vancomycin Inj 1,000 MG in Sodium Chlor 0.9% Inj 250 ML IV.SIG SCH ×2 (08:54→18:10)
[2018-04-11] MEDS: Famotidine PF Inj 20 MG/2 ML Vial IV.PUSH SCH ×2 (08:55→21:06)
[2018-04-11] MEDS: Senna/Docusate Sodium 8.6/50 MG Tablet PO SCH ×2 (08:55→21:06)
--- NOTE | 2018-04-11 08:56 | P.PNCC ---
Subjective Subjective Remarks/Hospital Course: 04/11: Patient is status post emergent surgery for acute postoperative left carotid hemorrhage. Patient complains of left neck pain currently 12/06, pain meds being administered peer patient neurologically intact. Objective Vital Signs / I&O: Vital Signs 04/10/18 21:53 04/10/18 22:08 04/10/18 22:35 Temperature Pulse Rate 75 86 80 Respiratory Rate 17 17 Blood Pressure 179/88 H 192/92 H Pulse Oximetry 100 100 98 04/11/18 03:26 04/11/18 04:00 Temperature 98.9 F Pulse Rate 98 H Respiratory Rate 16 Blood Pressure 151/84 H Pulse Oximetry 99 100 Intake & Output 04/10/18 04/11/18 04/11/18 18:59 06:59 18:59 Intake Total 4350 / 4350 50 / 50 Output Total 2800 / 2800 Balance 1550 / 1550 50 / 50 Weight 87 kg Intake: IV 50 / 50 50 / 50 Cleviprex Inj 25 mg In 50 ml @ 50 / 50 1 MG/HR 2 mls/hr IV.CONT TITRATE PRN Rx#:[id number] Zosyn 3.375 GM Premix 3.375 gm 50 / 50 In 50 ml @ 100 mls/hr IV.SIG Q6H DIANE Rx#:[id number] Oral 0 / 0 Anesthesia Amount 3800 / 3800 SureTrans Amount 500 / 500 Output: Estimated Blood Loss 1200 / 1200 Urine Amount (Catheter) 1600 / 1600 Indwelling Urethral Catheter 1600 / 1600 Other: # Bowel Movements 0 Result Diagrams: 04/11/18 05:30 04/11/18 05:30 Other Results: Laboratory Results WBC 16.6 th/mm3 (4.0-11.0) H 04/11/18 05:30 RBC 3.85 mil/mm3 (4.50-5.90) L 04/11/18 05:30 Hgb 11.1 gm/dL (13.0-17.0) L D 04/11/18 05:30 POC Hgb (Calc) 10.2 g/dL (13.0-17.0) L 04/10/18 21:56 Hct 31.7 % (39.0-51.0) L 04/11/18 05:30 POC Hct 30.0 % (39-51.0) L 04/10/18 21:56 MCV 82.4 fL (80.0-100.0) 04/11/18 05:30 MCH 28.8 pg (27.0-34.0) 04/11/18 05:30 MCHC 35.0 % (32.0-36.0) 04/11/18 05:30 RDW 13.2 % (11.6-17.2) 04/11/18 05:30 Plt Count 276 th/mm3 (150-450) 04/11/18 05:30 MPV 7.1 fL (7.0-11.0) 04/11/18 05:30 Neut % (Auto) 87.7 % (16.0-70.0) H 04/11/18 05:30 Lymph % (Auto) 8.2 % (9.0-44.0) L 04/11/18 05:30 [place] % (Auto) 3.7 % (0.0-8.0) 04/11/18 05:30 Eos % (Auto) 0.1 % (0.0-4.0) 04/11/18 05:30 Baso % (Auto) 0.3 % (0.0-2.0) 04/11/18 05:30 Neut # (Auto) 14.6 th/mm3 (1.8-7.7) H 04/11/18 05:30 Lymph # (Auto) 1.4 th/mm3 (1.0-4.8) 04/11/18 05:30 [place] # (Auto) 0.6 th/mm3 (0.0-0.9) 04/11/18 05:30 Eos # (Auto) 0.0 th/mm3 (0.0-0.4) 04/11/18 05:30 Baso # (Auto) 0.0 th/mm3 (0.0-0.2) 04/11/18 05:30 WBC Differential . 04/11/18 05:30 Differential Comment Auto diff final 04/11/18 05:30 PT 10.0 sec (9.8-11.6) 04/10/18 21:56 INR 1.0 Ratio 04/10/18 21:56 APTT 24.4 sec (23.4-31.7) 04/11/18 05:30 Fibrinogen 466 mg/dL (227-377) H 04/10/18 21:56 Puncture Site Art line 04/11/18 01:32 Patient Temperature 98.6 04/11/18 01:32 O2 Saturation 97 % (90-100) 04/11/18 01:32 ABG pH 7.45 (7.380-7.420) H 04/11/18 01:32 ABG pCO2 36 mmHg (38-42) L 04/11/18 01:32 ABG pO2 269 mmHG (61-120) H 04/11/18 01:32 ABG HCO3 25 mmol/L (22-26) 04/11/18 01:32 ABG O2 Content 12.9 Vol % (12.0-20.0) 04/11/18 01:32 ABG Base Excess 0.9 mmol/L (-2-2) 04/11/18 01:32 ABG Methemoglobin 1.9 % (0-2) 04/11/18 01:32 Hemoglobin 9.0 G/DL (12.0-16.0) L 04/11/18 01:32 Carboxyhemoglobin 0.9 % (0-4) 04/11/18 01:32 O2 Delivery Device O.r. gas 04/11/18 01:32 Inspired O2 50 % 04/11/18 01:32 Critical Value No 04/11/18 01:32 POC Sodium 138 mmol/L (137-144) 04/10/18 21:56 Sodium 139 meq/L (136-145) 04/11/18 05:30 POC Potassium 3.7 mmol/L (3.6-5.0) 04/10/18 21:56 Potassium 4.1 meq/L (3.5-5.1) 04/11/18 05:30 POC Chloride 99 mmol/L (102-111) L 04/10/18 21:56 Chloride 103 meq/L (98-107) 04/11/18 05:30 Carbon Dioxide 27.0 meq/L (21.0-32.0) 04/11/18 05:30 Anion Gap 9 meq/L (5-15) 04/11/18 05:30 POC BUN 14 mg/dL (5-21) 04/10/18 21:56 BUN 13 mg/dL (7-18) 04/11/18 05:30 Creatinine 0.99 mg/dL (0.60-1.30) 04/11/18 05:30 POC Creatinine 1.0 mg/dL (0.6-1.3) 04/10/18 21:56 Estimated GFR Greater than 89 mL/min (>89) 04/11/18 05:30 POC Glucose 350 mg/dL (68-110) H 04/10/18 21:56 Random Glucose 370 mg/dL (74-106) H 04/11/18 05:30 Calcium 8.1 mg/dL (8.5-10.1) L 04/11/18 05:30 Phosphorus 3.8 mg/dL (2.5-4.9) 04/11/18 05:30 Magnesium 1.8 mg/dL (1.5-2.5) 04/11/18 05:30 Total Bilirubin 0.5 mg/dL (0.2-1.0) 04/11/18 05:30 AST 9 U/L (15-37) L 04/11/18 05:30 ALT 19 U/L (12-78) 04/11/18 05:30 Alkaline Phosphatase 118 U/L (45-117) H 04/11/18 05:30 Troponin I Less than 0.02 ng/mL (0.02-0.05) L 04/10/18 21:56 Total Protein 6.4 g/dL (6.4-8.2) 04/11/18 05:30 Albumin 2.9 g/dL (3.4-5.0) L 04/11/18 05:30 Blood Type B Positive 04/10/18 21:55 Blood Type Recheck Required 04/10/18 21:55 Antibody Screen Negative 04/10/18 21:55 MTS Gel Crossmatch See Detail 04/10/18 23:50 Impressions Neck CTA 04/10/18 21:58 CONCLUSION: 1. No significant carotid stenosis. 2. Large hematoma left neck. Objective Remarks: GENERAL: A well-developed well-nourished -[place]ian male in moderate distress secondary to postoperative pain SKIN: Warm and dry. HEAD: Atraumatic. Normocephalic. EYES: Pupils equal and round. No scleral icterus. No injection or drainage. ENT: No nasal bleeding or discharge. Mucous membranes pink and moist. NECK: Trachea midline. No JVD. Left occlusive dressing C/D/I CARDIOVASCULAR: Normal rate, regular rhythm. RESPIRATORY: No accessory muscle use. Clear to auscultation. Breath sounds equal bilaterally. GASTROINTESTINAL: Abdomen soft, non-tender, nondistended. No guarding. MUSCULOSKELETAL: Extremities without clubbing, cyanosis, or edema. No obvious deformities. NEUROLOGICAL: Awake and alert. RASS 0. No gross focal/sensory deficits. Follows commands in all 4 extremities. Noted right-sided upper and lower extremity weakness. Expressive aphasia noted Assessment and Plan - Problem List (1) Diabetes mellitus Code(s): E11.9 - Type 2 diabetes mellitus without complications Status: Acute (2) Hypertension Code(s): I10 - Essential (primary) hypertension Status: Acute (3) Dyslipidemia Code(s): E78.5 - Hyperlipidemia, unspecified Status: Acute - Assessment and Plan Plan: Acute post-operative left carotid hemorrhage -Status post Emergent neck exploration with excision of infected left carotid artery and common carotid to ICA bypass, with evacuation of hematoma, POD #0 -CCA-ICA bypass -Possible prior surgery wound infection -Broad-spectrum antibiotic -BP control with SBP goal [id number] on Cleviprex 7 mg/hour -Further management per vascular surgery Prior surgery wound infection -Vancomycin/Zosyn -Blood cultures -Follow-up and de-escalate per sensitivity Diabetes -Insulin sliding scale Hypertension -Cleviprex drip as needed to keep SBP 140-160 Dyslipidemia -Atorvastatin DVT GI prophylaxis -Teds SCDs -Pharmacological DVT prophylaxis per vascular surgery -Pepcid My billing statement This patient remains critically ill with one or more organ systems which are or may become a threat to life. I have spent in excess of 33 minutes discontinuously in the care and management of this patient. This time is exclusive of procedures, and includes, but is not limited to, evaluation of the patient, review of the medical record, discussions with family, consultants, nursing staff, or respiratory therapy, and documentation in the medical record. Code Status: Full Discussed Condition With: [employer] at bedside. No family available at bedside (1) Diabetes mellitus Qualifiers: Diabetes mellitus type: type 2
[2018-04-11] MEDS: HYDROmorphone PF Inj 2 MG/ML Vial IV.PUSH PRN (09:18)
--- NOTE | 2018-04-11 09:56 | P.PNVS ---
Subjective Post Op Day #: 0 Procedure: L CCA-ICA bypass for carotid blowout Subjective/Hospital Course: extubated in OR HD stable, mildly hypertensive appears to be neurologically intact Objective Vital Signs / I&O: Vital Signs 04/10/18 21:53 04/10/18 22:08 04/10/18 22:35 Temperature Pulse Rate 75 86 80 Respiratory Rate 17 17 Blood Pressure 179/88 H 192/92 H Pulse Oximetry 100 100 98 04/11/18 03:26 04/11/18 04:00 04/11/18 08:00 Temperature 98.9 F 98.8 F Pulse Rate 98 H 85 Respiratory Rate 16 18 Blood Pressure 151/84 H 164/76 H Pulse Oximetry 99 100 99 Intake & Output 04/10/18 04/11/18 04/11/18 18:59 06:59 18:59 Intake Total 4350 / 4350 50 / 50 Output Total 2800 / 2800 Balance 1550 / 1550 50 / 50 Weight 87 kg Intake: IV 50 / 50 50 / 50 Cleviprex Inj 25 mg In 50 ml @ 50 / 50 1 MG/HR 2 mls/hr IV.CONT TITRATE PRN Rx#:[id number] Zosyn 3.375 GM Premix 3.375 gm 50 / 50 In 50 ml @ 100 mls/hr IV.SIG Q6H DIANE Rx#:[id number] Oral 0 / 0 Anesthesia Amount 3800 / 3800 SureTrans Amount 500 / 500 Output: Estimated Blood Loss 1200 / 1200 Urine Amount (Catheter) 1600 / 1600 Indwelling Urethral Catheter 1600 / 1600 Other: # Bowel Movements 0 Exam: resting comfortably L neck dressing with serosanguinous drainage HIGH CN intact grossly Laboratory Results - last 24 hr 04/10/18 04/10/18 04/10/18 21:55 21:56 21:56 WBC RBC Hgb POC Hgb (Calc) Hct POC Hct MCV MCH MCHC RDW Plt Count MPV Neut % (Auto) Lymph % (Auto) [place] % (Auto) Eos % (Auto) Baso % (Auto) Neut # (Auto) Lymph # (Auto) [place] # (Auto) Eos # (Auto) Baso # (Auto) WBC Differential Differential Comment PT INR APTT Fibrinogen Cancelled Puncture Site Patient Temperature O2 Saturation ABG pH ABG pCO2 ABG pO2 ABG HCO3 ABG O2 Content ABG Base Excess ABG Methemoglobin Hemoglobin Carboxyhemoglobin O2 Delivery Device Inspired O2 Critical Value POC Sodium Sodium POC Potassium Potassium POC Chloride Chloride Carbon Dioxide Anion Gap POC BUN BUN Creatinine POC Creatinine Estimated GFR POC Glucose 347 H Random Glucose Calcium Phosphorus Magnesium Total Bilirubin AST ALT Alkaline Phosphatase Troponin I Total Protein Albumin Nasal Screen MRSA (PCR) Blood Type B Positive Blood Type Recheck Required Antibody Screen Negative MTS Gel Crossmatch 04/10/18 04/10/18 04/10/18 21:56 21:56 21:56 WBC 9.2 RBC 3.96 L Hgb 11.2 L POC Hgb (Calc) Hct 32.2 L POC Hct MCV 81.4 MCH 28.4 MCHC 34.9 RDW 13.4 Plt Count 334 MPV 7.1 Neut % (Auto) 57.6 Lymph % (Auto) 33.0 [place] % (Auto) 6.4 Eos % (Auto) 2.4 Baso % (Auto) 0.6 Neut # (Auto) 5.3 Lymph # (Auto) 3.0 [place] # (Auto) 0.6 Eos # (Auto) 0.2 Baso # (Auto) 0.1 WBC Differential . Differential Comment Auto diff final PT 10.0 INR 1.0 APTT 21.4 L Fibrinogen 466 H Puncture Site Patient Temperature O2 Saturation ABG pH ABG pCO2 ABG pO2 ABG HCO3 ABG O2 Content ABG Base Excess ABG Methemoglobin Hemoglobin Carboxyhemoglobin O2 Delivery Device Inspired O2 Critical Value POC Sodium Sodium POC Potassium Potassium POC Chloride Chloride Carbon Dioxide Anion Gap POC BUN BUN Creatinine POC Creatinine Estimated GFR POC Glucose Random Glucose Calcium Phosphorus Magnesium Total Bilirubin AST ALT Alkaline Phosphatase Troponin I Less than 0.02 L Total Protein Albumin Nasal Screen MRSA (PCR) Blood Type Blood Type Recheck Antibody Screen MTS Gel Crossmatch 04/10/18 04/10/18 04/10/18 21:56 23:14 23:29 WBC RBC Hgb POC Hgb (Calc) 10.2 L Hct POC Hct 30.0 L MCV MCH MCHC RDW Plt Count MPV Neut % (Auto) Lymph % (Auto) [place] % (Auto) Eos % (Auto) Baso % (Auto) Neut # (Auto) Lymph # (Auto) [place] # (Auto) Eos # (Auto) Baso # (Auto) WBC Differential Differential Comment PT INR APTT Fibrinogen Puncture Site Art line Patient Temperature 98.6 O2 Saturation 97 ABG pH 7.42 ABG pCO2 38 ABG pO2 315 H ABG HCO3 24 ABG O2 Content 16.9 ABG Base Excess -0.2 ABG Methemoglobin 2.0 Hemoglobin 11.9 L Carboxyhemoglobin 0.5 O2 Delivery Device O.r. gas Inspired O2 Critical Value No POC Sodium 138 Sodium POC Potassium 3.7 Potassium POC Chloride 99 L Chloride Carbon Dioxide Anion Gap POC BUN 14 BUN Creatinine POC Creatinine 1.0 Estimated GFR POC Glucose 350 H Random Glucose Calcium Phosphorus Magnesium Total Bilirubin AST ALT Alkaline Phosphatase Troponin I Total Protein Albumin Nasal Screen MRSA (PCR) Blood Type Blood Type Recheck Antibody Screen MTS Gel Crossmatch See Detail 04/10/18 04/11/18 04/11/18 23:50 00:35 00:35 WBC 15.2 H D RBC 3.20 L Hgb 9.0 L D POC Hgb (Calc) Hct 25.9 L POC Hct MCV 81.1 MCH 28.2 MCHC 34.8 RDW 13.4 Plt Count 289 MPV 7.2 Neut % (Auto) 83.0 H Lymph % (Auto) 12.1 [place] % (Auto) 3.8 Eos % (Auto) 0.9 Baso % (Auto) 0.2 Neut # (Auto) 12.6 H Lymph # (Auto) 1.8 [place] # (Auto) 0.6 Eos # (Auto) 0.1 Baso # (Auto) 0.0 WBC Differential . Differential Comment Auto diff final PT INR APTT Fibrinogen Puncture Site Art line Patient Temperature 98.6 O2 Saturation 97 ABG pH 7.47 H ABG pCO2 33 L ABG pO2 276 H ABG HCO3 24 ABG O2 Content 13.9 ABG Base Excess 0.4 ABG Methemoglobin 2.0 Hemoglobin 9.7 L Carboxyhemoglobin 0.8 O2 Delivery Device O.r. gas Inspired O2 50 Critical Value No POC Sodium Sodium POC Potassium Potassium POC Chloride Chloride Carbon Dioxide Anion Gap POC BUN BUN Creatinine POC Creatinine Estimated GFR POC Glucose Random Glucose Calcium Phosphorus Magnesium Total Bilirubin AST ALT Alkaline Phosphatase Troponin I Total Protein Albumin Nasal Screen MRSA (PCR) Blood Type Blood Type Recheck Antibody Screen MTS Gel Crossmatch See Detail 04/11/18 04/11/18 04/11/18 01:32 01:32 05:30 WBC 14.0 H 16.6 H RBC 3.02 L 3.85 L Hgb 8.5 L 11.1 L D POC Hgb (Calc) Hct 24.3 L 31.7 L POC Hct MCV 80.5 82.4 MCH 28.2 28.8 MCHC 35.0 35.0 RDW 13.4 13.2 Plt Count 236 276 MPV 7.2 7.1 Neut % (Auto) 83.9 H 87.7 H Lymph % (Auto) 11.[address] % (Auto) 4.4 3.7 Eos % (Auto) 0.5 0.1 Baso % (Auto) 0.2 0.3 Neut # (Auto) 11.8 H 14.6 H Lymph # (Auto) 1.[address] [place] # (Auto) 0.6 0.6 Eos # (Auto) 0.1 0.0 Baso # (Auto) 0.0 0.0 WBC Differential . . Differential Comment Auto diff final Auto diff final PT INR APTT Fibrinogen Puncture Site Art line Patient Temperature 98.6 O2 Saturation 97 ABG pH 7.45 H ABG pCO2 36 L ABG pO2 269 H ABG HCO3 25 ABG O2 Content 12.9 ABG Base Excess 0.9 ABG Methemoglobin 1.9 Hemoglobin 9.0 L Carboxyhemoglobin 0.9 O2 Delivery Device O.r. gas Inspired O2 50 Critical Value No POC Sodium Sodium POC Potassium Potassium POC Chloride Chloride Carbon Dioxide Anion Gap POC BUN BUN Creatinine POC Creatinine Estimated GFR POC Glucose Random Glucose Calcium Phosphorus Magnesium Total Bilirubin AST ALT Alkaline Phosphatase Troponin I Total Protein Albumin Nasal Screen MRSA (PCR) Blood Type Blood Type Recheck Antibody Screen MTS Gel Crossmatch 04/11/18 04/11/18 04/11/18 05:30 05:30 05:30 WBC RBC Hgb POC Hgb (Calc) Hct POC Hct MCV MCH MCHC RDW Plt Count MPV Neut % (Auto) Lymph % (Auto) [place] % (Auto) Eos % (Auto) Baso % (Auto) Neut # (Auto) Lymph # (Auto) [place] # (Auto) Eos # (Auto) Baso # (Auto) WBC Differential Differential Comment PT INR APTT 24.4 Fibrinogen Puncture Site Patient Temperature O2 Saturation ABG pH ABG pCO2 ABG pO2 ABG HCO3 ABG O2 Content ABG Base Excess ABG Methemoglobin Hemoglobin Carboxyhemoglobin O2 Delivery Device Inspired O2 Critical Value POC Sodium Sodium 139 POC Potassium Potassium 4.1 POC Chloride Chloride 103 Carbon Dioxide 27.0 Anion Gap 9 POC BUN BUN 13 Creatinine 0.99 POC Creatinine Estimated GFR Greater than 89 POC Glucose Random Glucose 370 H Calcium 8.1 L Phosphorus 3.8 Magnesium 1.8 Total Bilirubin 0.5 AST 9 L ALT 19 Alkaline Phosphatase 118 H Troponin I Total Protein 6.4 Albumin 2.9 L Nasal Screen MRSA (PCR) Not detected Blood Type Blood Type Recheck Antibody Screen MTS Gel Crossmatch Assessment and Plan - Plan POD#0 s/p emergent carotid replacement 1. Cardiac diet 2. OOB TC 3. Perez out 4. F/u intra-op cultures; continue vanc/zosyn for now (Day 0) 5. Continue neuro checks q1h in ICU 6. Dressing changes daily with bacitracin 7. PT consult Discharge Planning: likely 4-5 days
[2018-04-11] MEDS: Acetaminophen 325 MG Tablet PO PRN (12:02)
[2018-04-11] MEDS ORDERED: Dextrose 50% in Water 50 ML Vial IV.PUSH PRN (12:56)
[2018-04-11] MEDS: Insulin NovoLOG Aspart Correctional Sugar Inj SQ SCH (17:09)
[2018-04-11] MEDS: amLODIPine 10 MG Tablet PO SCH (18:10)
[2018-04-11] MEDS: Labetalol HCl Inj 100 MG/20 ML Vial IV.PUSH PRN (21:06)
[2018-04-12] MEDS: Insulin NovoLOG Aspart Correctional Sugar Inj SQ SCH ×5 (01:26→20:57)
[2018-04-12] MEDS: Labetalol HCl Inj 100 MG/20 ML Vial IV.PUSH PRN (01:29)
[2018-04-12] MEDS: Clevidipine Inj 25 MG/50 ML VIAL IV.CONT PRN ×2 (02:14→08:02)
[2018-04-12] MEDS: Piperacil/Tazo 3.375 GM Premix 3.375 GM/50 ML PIGGYBACK IV.SIG SCH ×4 (03:00→20:56)
[2018-04-12 05:07] LABS: Hematocrit 28.8 % (39.0-51.0); Hemoglobin 10.2 gm/dL (13.0-17.0); Mean Corpuscular HGB Conc 35.3 % (32.0-36.0); Mean Corpuscular Hemoglobin 28.9 pg (27.0-34.0); Mean Corpuscular Volume 81.7 fL (80.0-100.0); Mean Platelet Volume 7.2 fL (7.0-11.0); Platelet Count 276 th/mm3 (150-450); Red Blood Count 3.53 mil/mm3 (4.50-5.90); Red Cell Distribution Width 13.7 % (11.6-17.2); White Blood Count 13.8 th/mm3 (4.0-11.0)
[2018-04-12 05:13] LABS: Anion Gap 8 meq/L (5-15); Blood Urea Nitrogen 11 mg/dL (7-18); Calcium 8.5 mg/dL (8.5-10.1); Carbon Dioxide 28.4 meq/L (21.0-32.0); Chloride 106 meq/L (98-107); Glomerular Filtration Rate Greater Than 89 mL/min (>89); Glucose,Random 113 mg/dL (74-106); Magnesium 1.9 mg/dL (1.5-2.5); Potassium 3.2 meq/L (3.5-5.1); Sodium 142 meq/L (136-145)
[2018-04-12] MEDS: Vancomycin Inj 1,000 MG in Sodium Chlor 0.9% Inj 250 ML IV.SIG SCH ×2 (06:38→19:50)
[2018-04-12] MEDS: Chlorhexidine Gluconate 2% 1 Pack (2 Cloths) TOPICAL SCH (06:38)
--- NOTE | 2018-04-12 07:00 | P.PNCC ---
Subjective Subjective Remarks/Hospital Course: 04/11: Patient is status post emergent surgery for acute postoperative left carotid hemorrhage. Patient complains of left neck pain currently 12/06, pain meds being administered peer patient neurologically intact. 04/12: Afebrile . The patient remained hypertensive yesterday, list obtained from family and antihypertensive home medications were resumed. Cleviprex now decreased to 4 mg/hour. The patient continued to be hyperglycemic during the day yesterday, Levemir initiated 15 mg twice daily this a.m.. Diet change to cardiac diet carb controlled. Objective Vital Signs / I&O: Vital Signs 04/11/18 08:00 04/11/18 11:43 04/11/18 12:00 Temperature 98.8 F Pulse Rate 85 83 75 Respiratory Rate 18 16 Blood Pressure 164/76 H 137/60 Pulse Oximetry 99 99 04/11/18 12:55 04/11/18 13:28 04/11/18 14:11 Temperature Pulse Rate 92 H Respiratory Rate 18 Blood Pressure Pulse Oximetry 98 04/11/18 16:00 04/11/18 16:10 04/11/18 20:00 Temperature 98.7 F Pulse Rate 91 H 96 H Respiratory Rate 18 20 Blood Pressure 141/57 H 159/80 H Pulse Oximetry 98 99 100 04/12/18 00:00 Temperature 98.8 F Pulse Rate 94 H Respiratory Rate 20 Blood Pressure 158/86 H Pulse Oximetry 99 Intake & Output 04/11/18 04/11/18 04/12/18 06:59 18:59 06:59 Intake Total 4350 / 4350 2380 / 2380 450 / 450 Output Total 2800 / 2800 1650 / 1650 Balance 1550 / 1550 730 / 730 450 / 450 Weight 87 kg 87 kg Intake: IV 50 / 50 1600 / 1600 450 / 450 Cleviprex Inj 25 mg In 50 ml @ 250 / 250 150 / 150 1 MG/HR 2 mls/hr IV.CONT TITRATE PRN Rx#:[id number] NS Inj 1,000 ML @ 84 mls/hr IV. 1000 / 1000 CONT .[id number] DIANE Rx#:[id number] Zosyn 3.375 GM Premix 3.375 gm 50 / 50 100 / 100 50 / 50 In 50 ml @ 100 mls/hr IV.SIG Q6H DIANE Rx#:[id number] Vancomycin Inj 1,000 MG In NS 250 / 250 250 / 250 Inj 250 ML @ 250 mls/hr IV.SIG Q12H DIANE Rx#:[id number] Oral 0 / 0 780 / 780 Anesthesia Amount 3800 / 3800 SureTrans Amount 500 / 500 Output: Urine 200 / 200 Estimated Blood Loss 1200 / 1200 Urine Amount (Catheter) 1600 / 1600 1450 / 1450 Indwelling Urethral Catheter 1600 / 1600 1450 / 1450 Other: # Bowel Movements 0 0 Weight On Admission 87 kg Result Diagrams: 04/12/18 04:28 04/12/18 04:28 Other Results: Laboratory Results WBC 13.8 th/mm3 (4.0-11.0) H 04/12/18 04:28 RBC 3.53 mil/mm3 (4.50-5.90) L 04/12/18 04:28 Hgb 10.2 gm/dL (13.0-17.0) L 04/12/18 04:28 POC Hgb (Calc) 10.2 g/dL (13.0-17.0) L 04/10/18 21:56 Hct 28.8 % (39.0-51.0) L 04/12/18 04:28 POC Hct 30.0 % (39-51.0) L 04/10/18 21:56 MCV 81.7 fL (80.0-100.0) 04/12/18 04:28 MCH 28.9 pg (27.0-34.0) 04/12/18 04:28 MCHC 35.3 % (32.0-36.0) 04/12/18 04:28 RDW 13.7 % (11.6-17.2) 04/12/18 04:28 Plt Count 276 th/mm3 (150-450) 04/12/18 04:28 MPV 7.2 fL (7.0-11.0) 04/12/18 04:28 Neut % (Auto) 87.7 % (16.0-70.0) H 04/11/18 05:30 Lymph % (Auto) 8.2 % (9.0-44.0) L 04/11/18 05:30 [place] % (Auto) 3.7 % (0.0-8.0) 04/11/18 05:30 Eos % (Auto) 0.1 % (0.0-4.0) 04/11/18 05:30 Baso % (Auto) 0.3 % (0.0-2.0) 04/11/18 05:30 Neut # (Auto) 14.6 th/mm3 (1.8-7.7) H 04/11/18 05:30 Lymph # (Auto) 1.4 th/mm3 (1.0-4.8) 04/11/18 05:30 [place]ess # (Auto) 0.6 th/mm3 (0.0-0.9) 04/11/18 05:30 Eos # (Auto) 0.0 th/mm3 (0.0-0.4) 04/11/18 05:30 Baso # (Auto) 0.0 th/mm3 (0.0-0.2) 04/11/18 05:30 WBC Differential . 04/11/18 05:30 Differential Comment Auto diff final 04/11/18 05:30 PT 10.0 sec (9.8-11.6) 04/10/18 21:56 INR 1.0 Ratio 04/10/18 21:56 APTT 24.4 sec (23.4-31.7) 04/11/18 05:30 Fibrinogen 466 mg/dL (227-377) H 04/10/18 21:56 Puncture Site Art line 04/11/18 01:32 Patient Temperature 98.6 04/11/18 01:32 O2 Saturation 97 % (90-100) 04/11/18 01:32 ABG pH 7.45 (7.380-7.420) H 04/11/18 01:32 ABG pCO2 36 mmHg (38-42) L 04/11/18 01:32 ABG pO2 269 mmHG (61-120) H 04/11/18 01:32 ABG HCO3 25 mmol/L (22-26) 04/11/18 01:32 ABG O2 Content 12.9 Vol % (12.0-20.0) 04/11/18 01:32 ABG Base Excess 0.9 mmol/L (-2-2) 04/11/18 01:32 ABG Methemoglobin 1.9 % (0-2) 04/11/18 01:32 Hemoglobin 9.0 G/DL (12.0-16.0) L 04/11/18 01:32 Carboxyhemoglobin 0.9 % (0-4) 04/11/18 01:32 O2 Delivery Device O.r. gas 04/11/18 01:32 Inspired O2 50 % 04/11/18 01:32 Critical Value No 04/11/18 01:32 POC Sodium 138 mmol/L (137-144) 04/10/18 21:56 Sodium 142 meq/L (136-145) 04/12/18 04:28 POC Potassium 3.7 mmol/L (3.6-5.0) 04/10/18 21:56 Potassium 3.2 meq/L (3.5-5.1) L D 04/12/18 04:28 POC Chloride 99 mmol/L (102-111) L 04/10/18 21:56 Chloride 106 meq/L (98-107) 04/12/18 04:28 Carbon Dioxide 28.4 meq/L (21.0-32.0) 04/12/18 04:28 Anion Gap 8 meq/L (5-15) 04/12/18 04:28 POC BUN 14 mg/dL (5-21) 04/10/18 21:56 BUN 11 mg/dL (7-18) 04/12/18 04:28 Creatinine 0.97 mg/dL (0.60-1.30) 04/12/18 04:28 POC Creatinine 1.0 mg/dL (0.6-1.3) 04/10/18 21:56 Estimated GFR Greater than 89 mL/min (>89) 04/12/18 04:28 POC Glucose 439 mg/dl (68-110) H 04/12/18 01:25 Random Glucose 113 mg/dL (74-106) H D 04/12/18 04:28 Calcium 8.5 mg/dL (8.5-10.1) 04/12/18 04:28 Phosphorus 2.0 mg/dL (2.5-4.9) L D 04/12/18 04:28 Magnesium 1.9 mg/dL (1.5-2.5) 04/12/18 04:28 Total Bilirubin 0.5 mg/dL (0.2-1.0) 04/11/18 05:30 AST 9 U/L (15-37) L 04/11/18 05:30 ALT 19 U/L (12-78) 04/11/18 05:30 Alkaline Phosphatase 118 U/L (45-117) H 04/11/18 05:30 Troponin I Less than 0.02 ng/mL (0.02-0.05) L 04/10/18 21:56 Total Protein 6.4 g/dL (6.4-8.2) 04/11/18 05:30 Albumin 2.9 g/dL (3.4-5.0) L 04/11/18 05:30 Nasal Screen MRSA (PCR) Not detected (Negative) 04/11/18 05:30 Blood Type B Positive 04/10/18 21:55 Blood Type Recheck Required 04/10/18 21:55 Antibody Screen Negative 04/10/18 21:55 MTS Gel Crossmatch See Detail 04/11/18 17:52 Impressions Neck CTA 04/10/18 21:58 CONCLUSION: 1. No significant carotid stenosis. 2. Large hematoma left neck. Objective Remarks: GENERAL: A well-developed well-nourished -Turkish male resting comfortably SKIN: Warm and dry. HEAD: Atraumatic. Normocephalic. EYES: Pupils equal and round. No scleral icterus. No injection or drainage. ENT: No nasal bleeding or discharge. Mucous membranes pink and moist. NECK: Trachea midline. No JVD. Left occlusive dressing C/D/I, no signs of bleeding or drain CARDIOVASCULAR: Normal rate, regular rhythm. RESPIRATORY: No accessory muscle use. Clear to auscultation. Breath sounds equal bilaterally. GASTROINTESTINAL: Abdomen soft, non-tender, nondistended. No guarding. MUSCULOSKELETAL: Extremities without clubbing, cyanosis, or edema. No obvious deformities. NEUROLOGICAL: Awake and alert. RASS 0. No gross focal/sensory deficits. Follows commands in all 4 extremities. Noted right-sided upper and lower extremity weakness. Expressive aphasia Assessment and Plan - Problem List (1) Diabetes mellitus Code(s): E11.9 - Type 2 diabetes mellitus without complications Status: Acute (2) Hypertension Code(s): I10 - Essential (primary) hypertension Status: Acute (3) Dyslipidemia Code(s): E78.5 - Hyperlipidemia, unspecified Status: Acute - Assessment and Plan Plan: Acute post-operative left carotid hemorrhage -Status post Emergent neck exploration with excision of infected left carotid artery and common carotid to ICA bypass, with evacuation of hematoma, POD #0 -CCA-ICA bypass -Possible prior surgery wound infection -Broad-spectrum antibiotic -BP control with SBP goal [id number] on Cleviprex 4 mg/hour, Norvasc 10 mg/ day metoprolol 50 mg XL resumed -Further management per vascular surgery- Plavix 75 mg/day (home medication) defer to vascular surgery regarding management Prior surgery wound infection Left neck hematoma -Vancomycin/Zosyn (day2) -Blood cultures -Follow-up and de-escalate per sensitivity Diabetes -Insulin sliding scale Hypertension -Cleviprex drip as needed to keep SBP 140-160, wean as tolerated -Home meds resumed- Norvasc 10 mg/day, metoprolol 50 mg XL, losartan 100 mg/d, hydrochlorothiazide 25 mg/day Hypokalemia -Repletion per ICU protocol, potassium level 3.2 Dyslipidemia -Atorvastatin 20 mg HS DVT GI prophylaxis -Teds SCDs -Pharmacological DVT prophylaxis per vascular surgery -Pepcid Level 3 follow-up Code Status: Full Discussed Condition With: Patient and [employer] at bedside (1) Diabetes mellitus Qualifiers: Diabetes mellitus type: type 2
--- NOTE | 2018-04-12 07:51 | P.PNVS ---
Subjective Post Op Day #: 1 Procedure: L CCA-ICA bypass for carotid blowout Subjective/Hospital Course: occasional word-finding difficulty but no focal neurological deficits pain controlled per him resumed home antihypertensives and IV requirement improving voiding since Perez out Objective Vital Signs / I&O: Vital Signs 04/11/18 08:00 04/11/18 11:43 04/11/18 12:00 Temperature 98.8 F Pulse Rate 85 83 75 Respiratory Rate 18 16 Blood Pressure 164/76 H 137/60 Pulse Oximetry 99 99 04/11/18 12:55 04/11/18 13:28 04/11/18 14:11 Temperature Pulse Rate 92 H Respiratory Rate 18 Blood Pressure Pulse Oximetry 98 04/11/18 16:00 04/11/18 16:10 04/11/18 20:00 Temperature 98.7 F Pulse Rate 91 H 96 H Respiratory Rate 18 20 Blood Pressure 141/57 H 159/80 H Pulse Oximetry 98 99 100 04/12/18 00:00 04/12/18 04:00 Temperature 98.8 F Pulse Rate 94 H 86 Respiratory Rate 20 18 Blood Pressure 158/86 H 116/41 L Pulse Oximetry 99 99 Intake & Output 04/11/18 04/12/18 04/12/18 18:59 06:59 18:59 Intake Total 2380 / 2380 980 / 980 Output Total 1650 / 1650 700 / 700 Balance 730 / 730 280 / 280 Weight 87 kg 87.5 kg Intake: IV 1600 / 1600 500 / 500 Cleviprex Inj 25 mg In 50 ml @ 250 / 250 150 / 150 1 MG/HR 2 mls/hr IV.CONT TITRATE PRN Rx#:[id number] NS Inj 1,000 ML @ 84 mls/hr IV. 1000 / 1000 CONT .[id number] DIANE Rx#:[id number] Zosyn 3.375 GM Premix 3.375 gm 100 / 100 100 / 100 In 50 ml @ 100 mls/hr IV.SIG Q6H DIANE Rx#:[id number] Vancomycin Inj 1,000 MG In NS 250 / 250 250 / 250 Inj 250 ML @ 250 mls/hr IV.SIG Q12H DIANE Rx#:[id number] Oral 780 / 780 480 / 480 Output: Urine 200 / 200 700 / 700 Urine Amount (Catheter) 1450 / 1450 Indwelling Urethral Catheter 1450 / 1450 Other: # Bowel Movements 0 0 Weight On Admission 87 kg Exam: alert, HIGH slightly confused samuel po L neck edematous incision ok with mild drainage Laboratory Results - last 24 hr 04/10/18 04/11/18 04/11/18 23:50 05:30 12:00 WBC RBC Hgb Hct MCV MCH MCHC RDW Plt Count MPV Sodium Potassium Chloride Carbon Dioxide Anion Gap BUN Creatinine Estimated GFR POC Glucose 378 H Random Glucose Calcium Phosphorus Magnesium Nasal Screen MRSA (PCR) Not detected MTS Gel Crossmatch See Detail 04/11/18 04/11/18 04/12/18 16:51 17:52 01:25 WBC RBC Hgb Hct MCV MCH MCHC RDW Plt Count MPV Sodium Potassium Chloride Carbon Dioxide Anion Gap BUN Creatinine Estimated GFR POC Glucose 195 H 439 H Random Glucose Calcium Phosphorus Magnesium Nasal Screen MRSA (PCR) MTS Gel Crossmatch See Detail 04/12/18 04/12/18 04:28 04:28 WBC 13.8 H RBC 3.53 L Hgb 10.2 L Hct 28.8 L MCV 81.7 MCH 28.9 MCHC 35.3 RDW 13.7 Plt Count 276 MPV 7.2 Sodium 142 Potassium 3.2 L D Chloride 106 Carbon Dioxide 28.4 Anion Gap 8 BUN 11 Creatinine 0.97 Estimated GFR Greater than 89 POC Glucose Random Glucose 113 H D Calcium 8.5 Phosphorus 2.0 L D Magnesium 1.9 Nasal Screen MRSA (PCR) MTS Gel Crossmatch Microbiology 04/10/18 23:56 Fungal Smear - Final Wound - Neck No fungal elements seen 04/10/18 23:56 Gram Stain - Final Wound - Neck Assessment and Plan - Plan POD#1 s/p emergent carotid replacement 1. Cardiac diet 2. OOB TC / PT 3. Continue neuro checks 4. F/u intra-op cultures; continue vanc/zosyn for now (Day 2); vanc trough ordered 5. Dressing changes daily with bacitracin Discharge Planning: likely 3-4 days
[2018-04-12] MEDS: Insulin Detemir Inj 1,000 UNIT/10 ML Vial SQ SCH ×2 (09:25→20:56)
[2018-04-12] MEDS: Senna/Docusate Sodium 8.6/50 MG Tablet PO SCH ×2 (09:26→20:56)
[2018-04-12] MEDS: Famotidine PF Inj 20 MG/2 ML Vial IV.PUSH SCH ×2 (09:26→20:56)
[2018-04-12] MEDS: amLODIPine 10 MG Tablet PO SCH (09:26)
[2018-04-12] MEDS: hydroCHLOROthiazide 25 MG Tablet PO SCH (09:27)
[2018-04-12] MEDS ORDERED: Pharmacy Ordered Lab Info OTHER ONE (18:45)
[2018-04-12] MEDS: HYDROmorphone PF Inj 2 MG/ML Vial IV.PUSH PRN (19:30)
[2018-04-13] MEDS: HYDROmorphone PF Inj 2 MG/ML Vial IV.PUSH PRN (00:08)
[2018-04-13] MEDS: Piperacil/Tazo 3.375 GM Premix 3.375 GM/50 ML PIGGYBACK IV.SIG SCH ×4 (02:32→21:35)
[2018-04-13] MEDS: Labetalol HCl Inj 100 MG/20 ML Vial IV.PUSH PRN (02:33)
[2018-04-13 03:53] LABS: Baso % (Auto) 0.4 % (0.0-2.0); Eos # (Auto) 0.3 th/mm3 (0.0-0.4); Eos % (Auto) 2.5 % (0.0-4.0); Hemoglobin 9.9 gm/dL (13.0-17.0); Lymph # (Auto) 2.8 th/mm3 (1.0-4.8); Lymph % (Auto) 22.4 % (9.0-44.0); Mean Corpuscular HGB Conc 34.3 % (32.0-36.0); Mean Corpuscular Hemoglobin 27.9 pg (27.0-34.0); Mean Corpuscular Volume 81.4 fL (80.0-100.0); Mean Platelet Volume 7.4 fL (7.0-11.0); Mono # (Auto) 1.1 th/mm3 (0.0-0.9); Mono % (Auto) 8.6 % (0.0-8.0); Neut # (Auto) 8.3 th/mm3 (1.8-7.7); Neut % (Auto) 66.1 % (16.0-70.0); Platelet Count 276 th/mm3 (150-450); Red Blood Count 3.56 mil/mm3 (4.50-5.90); Red Cell Distribution Width 13.6 % (11.6-17.2); White Blood Count 12.5 th/mm3 (4.0-11.0)
[2018-04-13 03:59] LABS: Anion Gap 5 meq/L (5-15); Blood Urea Nitrogen 9 mg/dL (7-18); Calcium 8.7 mg/dL (8.5-10.1); Carbon Dioxide 30.8 meq/L (21.0-32.0); Chloride 106 meq/L (98-107); Glomerular Filtration Rate Greater Than 89 mL/min (>89); Glucose,Random 130 mg/dL (74-106); Phosphorus 2.9 mg/dL (2.5-4.9); Potassium 3.4 meq/L (3.5-5.1); Sodium 142 meq/L (136-145)
[2018-04-13] MEDS: Chlorhexidine Gluconate 2% 1 Pack (2 Cloths) TOPICAL SCH (04:15)
--- NOTE | 2018-04-13 06:36 | P.PNCC ---
Subjective Subjective Remarks/Hospital Course: 04/11: Patient is status post emergent surgery for acute postoperative left carotid hemorrhage. Patient complains of left neck pain currently 12/06, pain meds being administered peer patient neurologically intact. 04/12: Afebrile . The patient remained hypertensive yesterday, list obtained from family and antihypertensive home medications were resumed. Cleviprex now decreased to 4 mg/hour. The patient continued to be hyperglycemic during the day yesterday, Levemir initiated 15 mg twice daily this a.m.. Diet change to cardiac diet carb controlled. 04/13: Blood pressure well controlled patient remains on home antihypertensive medications per 11 Prax discontinued yesterday at 2 PM. Patient tolerating a diet, glucose well controlled with Levemir dosing. No bowel movement since admission bowel regimen instituted. Left neck dressing remains clean dry and intact and intact with small amount of drainage noted. Patient continues to have periods of being confusion, intermittently. Culture revealed staph aureus vancomycin continued. Objective Vital Signs / I&O: Vital Signs 04/12/18 08:00 04/12/18 09:00 04/12/18 12:00 Temperature 98.8 F 98.7 F Pulse Rate 104 H 94 H Respiratory Rate 20 18 Blood Pressure 150/84 H 142/78 H Pulse Oximetry 97 97 99 04/12/18 12:05 04/12/18 13:00 04/12/18 16:00 Temperature 99.3 F Pulse Rate 70 Respiratory Rate 17 Blood Pressure 145/62 H Pulse Oximetry 98 98 100 04/12/18 17:00 04/12/18 20:00 04/12/18 21:00 Temperature 99.2 F Pulse Rate 88 Respiratory Rate 20 Blood Pressure 159/87 H Pulse Oximetry 100 99 99 04/12/18 23:00 04/13/18 00:00 04/13/18 01:00 Temperature 99.2 F Pulse Rate 70 74 Respiratory Rate 18 Blood Pressure 133/81 Pulse Oximetry 99 99 04/13/18 03:00 04/13/18 03:12 Temperature 99.2 F Pulse Rate 69 71 Respiratory Rate 18 Blood Pressure 111/67 Pulse Oximetry 99 Intake & Output 04/12/18 04/12/18 04/13/18 06:59 18:59 06:59 Intake Total 980 / 980 1230 / 1230 760 / 760 Output Total 700 / 700 1050 / 1050 450 / 450 Balance 280 / 280 180 / 180 310 / 310 Weight 87.5 kg 75 kg Intake: IV 500 / 500 430 / 430 340 / 340 Cleviprex Inj 25 mg In 50 ml @ 150 / 150 80 / 80 1 MG/HR 2 mls/hr IV.CONT TITRATE PRN Rx#:[id number] Zosyn 3.375 GM Premix 3.375 gm 100 / 100 100 / 100 100 / 100 In 50 ml @ 100 mls/hr IV.SIG Q6H DIANE Rx#:[id number] Vancomycin Inj 1,000 MG In NS 250 / 250 250 / 250 240 / 240 Inj 250 ML @ 250 mls/hr IV.SIG Q12H DIANE Rx#:[id number] Oral 480 / 480 800 / 800 420 / 420 Output: Urine 700 / 700 1050 / 1050 450 / 450 Other: # Bowel Movements 0 0 Result Diagrams: 04/13/18 03:20 04/13/18 03:20 Objective Remarks: GENERAL: A well-developed well-nourished -[place] male asleep but easily arousable SKIN: Warm and dry. Left neck dressing intact HEAD: Atraumatic. Normocephalic. EYES: Pupils equal and round. No scleral icterus. No injection or drainage. ENT: No nasal bleeding or discharge. Mucous membranes pink and moist. NECK: Trachea midline. No JVD. Left occlusive dressing C/D/I, no signs of bleeding CARDIOVASCULAR: Normal rate, regular rhythm. RESPIRATORY: No accessory muscle use. Clear to auscultation. Breath sounds equal bilaterally. GASTROINTESTINAL: Abdomen soft, non-tender, nondistended. No guarding. MUSCULOSKELETAL: Extremities without clubbing, cyanosis, or edema. No obvious deformities. NEUROLOGICAL: Awake and alert. RASS 0. No gross focal/sensory deficits. Follows commands in all 4 extremities. Noted right-sided upper and lower extremity weakness. Expressive aphasia . Noted continued periods of intermittent confusion. Assessment and Plan - Problem List (1) Diabetes mellitus Code(s): E11.9 - Type 2 diabetes mellitus without complications Status: Acute (2) Hypertension Code(s): I10 - Essential (primary) hypertension Status: Acute (3) Dyslipidemia Code(s): E78.5 - Hyperlipidemia, unspecified Status: Acute - Assessment and Plan Plan: Acute post-operative left carotid hemorrhage -Status post Emergent neck exploration with excision of infected left carotid artery and common carotid to ICA bypass, with evacuation of hematoma, POD #0 -CCA-ICA bypass -Possible prior surgery wound infection -Broad-spectrum antibiotic -BP control with SBP goal [id number] discontinued 04/12/@1400 -Further management per vascular surgery- Plavix 75 mg/day (home medication) defer to vascular surgery regarding management Prior surgery wound infection Left neck hematoma -Vancomycin/Zosyn (day 3) -Blood cultures -Neck culturestaph aureus -Follow-up and de-escalate per sensitivity Diabetes -Insulin sliding scale -Continue detemir 15 units twice daily Hypertension -Cleviprex drip as needed to keep SBP 140-160,9dc'd 04/12 @ 1400 -Continue Norvasc 10 mg/day, metoprolol 50 mg XL, losartan 100 mg/d, hydrochlorothiazide 25 mg/day Hypokalemia -Repletion per ICU protocol, potassium level 3.4 Dyslipidemia -Atorvastatin 20 mg HS DVT GI prophylaxis -Teds SCDs -Pharmacological DVT prophylaxis per vascular surgery -Pepcid Level 3 follow-up Code Status: Full Discussed Condition With: GLASS DECORATOR at bedside (1) Diabetes mellitus Qualifiers: Diabetes mellitus type: type 2
[2018-04-13] MEDS ORDERED: Pharmacy Ordered Lab Info OTHER ONE (06:45)
--- NOTE | 2018-04-13 08:04 | P.PNVS ---
Subjective Post Op Day #: 2 Procedure: L CCA-ICA bypass for carotid blowout Subjective/Hospital Course: seems to be more oriented today baseline neuro status notes that his neck pain is improving steadily Objective Vital Signs / I&O: Vital Signs 04/12/18 09:00 04/12/18 12:00 04/12/18 12:05 Temperature 98.7 F Pulse Rate 94 H Respiratory Rate 18 Blood Pressure 142/78 H Pulse Oximetry 97 99 98 04/12/18 13:00 04/12/18 16:00 04/12/18 17:00 Temperature 99.3 F Pulse Rate 70 Respiratory Rate 17 Blood Pressure 145/62 H Pulse Oximetry 98 100 100 04/12/18 20:00 04/12/18 21:00 04/12/18 23:00 Temperature 99.2 F Pulse Rate 88 70 Respiratory Rate 20 Blood Pressure 159/87 H Pulse Oximetry 99 99 04/13/18 00:00 04/13/18 01:00 04/13/18 03:00 Temperature 99.2 F Pulse Rate 74 69 Respiratory Rate 18 Blood Pressure 133/81 Pulse Oximetry 99 99 04/13/18 03:12 Temperature 99.2 F Pulse Rate 71 Respiratory Rate 18 Blood Pressure 111/67 Pulse Oximetry 99 Intake & Output 04/12/18 04/13/18 04/13/18 18:59 06:59 18:59 Intake Total 1230 / 1230 760 / 760 Output Total 1050 / 1050 450 / 450 Balance 180 / 180 310 / 310 Weight 75 kg Intake: IV 430 / 430 340 / 340 Cleviprex Inj 25 mg In 50 ml @ 80 / 80 1 MG/HR 2 mls/hr IV.CONT TITRATE PRN Rx#:[id number] Zosyn 3.375 GM Premix 3.375 gm 100 / 100 100 / 100 In 50 ml @ 100 mls/hr IV.SIG Q6H DIANE Rx#:[id number] Vancomycin Inj 1,000 MG In NS 250 / 250 240 / 240 Inj 250 ML @ 250 mls/hr IV.SIG Q12H DIANE Rx#:[id number] Oral 800 / 800 420 / 420 Output: Urine 1050 / 1050 450 / 450 Other: # Bowel Movements 0 Exam: L neck incision less edematous neuro stable Laboratory Results - last 24 hr 04/10/18 04/10/18 04/11/18 23:29 23:50 17:52 WBC RBC Hgb Hct MCV MCH MCHC RDW Plt Count MPV Neut % (Auto) Lymph % (Auto) [place] % (Auto) Eos % (Auto) Baso % (Auto) Neut # (Auto) Lymph # (Auto) [place] # (Auto) Eos # (Auto) Baso # (Auto) WBC Differential Differential Comment Sodium Potassium Chloride Carbon Dioxide Anion Gap BUN Creatinine Estimated GFR POC Glucose Random Glucose Calcium Phosphorus Magnesium Vancomycin Trough MTS Gel Crossmatch See Detail See Detail See Detail 04/12/18 04/12/18 04/12/18 09:21 11:38 17:27 WBC RBC Hgb Hct MCV MCH MCHC RDW Plt Count MPV Neut % (Auto) Lymph % (Auto) [place] % (Auto) Eos % (Auto) Baso % (Auto) Neut # (Auto) Lymph # (Auto) [place] # (Auto) Eos # (Auto) Baso # (Auto) WBC Differential Differential Comment Sodium Potassium Chloride Carbon Dioxide Anion Gap BUN Creatinine Estimated GFR POC Glucose 372 H 237 H 218 H Random Glucose Calcium Phosphorus Magnesium Vancomycin Trough MTS Gel Crossmatch 04/12/18 04/12/18 04/13/18 19:43 20:36 03:20 WBC 12.5 H RBC 3.56 L Hgb 9.9 L Hct 29.0 L MCV 81.4 MCH 27.9 MCHC 34.3 RDW 13.6 Plt Count 276 MPV 7.4 Neut % (Auto) 66.1 Lymph % (Auto) 22.4 [place] % (Auto) 8.6 H Eos % (Auto) 2.5 Baso % (Auto) 0.4 Neut # (Auto) 8.3 H Lymph # (Auto) 2.8 [place] # (Auto) 1.1 H Eos # (Auto) 0.3 Baso # (Auto) 0.0 WBC Differential . Differential Comment Auto diff final Sodium Potassium Chloride Carbon Dioxide Anion Gap BUN Creatinine Estimated GFR POC Glucose 130 H Random Glucose Calcium Phosphorus Magnesium Vancomycin Trough 5.0 MTS Gel Crossmatch 04/13/18 03:20 WBC RBC Hgb Hct MCV MCH MCHC RDW Plt Count MPV Neut % (Auto) Lymph % (Auto) [place] % (Auto) Eos % (Auto) Baso % (Auto) Neut # (Auto) Lymph # (Auto) [place] # (Auto) Eos # (Auto) Baso # (Auto) WBC Differential Differential Comment Sodium 142 Potassium 3.4 L Chloride 106 Carbon Dioxide 30.8 Anion Gap 5 BUN 9 Creatinine 0.97 Estimated GFR Greater than 89 POC Glucose Random Glucose 130 H Calcium 8.7 Phosphorus 2.9 Magnesium 2.0 Vancomycin Trough MTS Gel Crossmatch Microbiology 04/10/18 23:56 Gram Stain - Final Wound - Neck Wound Culture - Preliminary Staphylococcus aureus 04/10/18 23:56 Fungal Smear - Final Wound - Neck No fungal elements seen 04/10/18 23:56 Acid Fast Bacilli Smear - Final Wound - Neck No acid fast bacilli seen Assessment and Plan - Plan POD#2 s/p emergent carotid replacement 1. Cardiac diet 2. OOB TC / PT 3. Continue neuro checks 4. F/u intra-op cultures; continue vanc/zosyn for now (Day 2); vanc trough ordered; prelim wound culture staph, which is most likely organism for graft infection in neck; if true positive, will need 6 weeks IV Vanc 5. Clear for floor on [facility] from my standpoint anytime Discharge Planning: likely 3-4 days
[2018-04-13] MEDS: Insulin NovoLOG Aspart Correctional Sugar Inj SQ SCH ×4 (09:14→21:33)
[2018-04-13] MEDS: hydroCHLOROthiazide 25 MG Tablet PO SCH (09:15)
[2018-04-13] MEDS: amLODIPine 10 MG Tablet PO SCH (09:15)
[2018-04-13] MEDS: Senna/Docusate Sodium 8.6/50 MG Tablet PO SCH ×2 (09:15→21:32)
[2018-04-13] MEDS: Insulin Detemir Inj 1,000 UNIT/10 ML Vial SQ SCH ×2 (09:16→21:32)
[2018-04-13] MEDS: Famotidine PF Inj 20 MG/2 ML Vial IV.PUSH SCH ×2 (09:16→21:34)
[2018-04-13] MEDS: Vancomycin Inj 1,000 MG in Sodium Chlor 0.9% Inj 250 ML IV.SIG SCH (09:35)
[2018-04-13] MEDS: Vancomycin Inj 1,750 MG in Sodium Chlor 0.9% Inj 500 ML IV.SIG SCH (11:52)
[2018-04-13] MEDS: Acetaminophen 325 MG Tablet PO PRN (21:54)
[2018-04-14] MEDS: Vancomycin Inj 1,750 MG in Sodium Chlor 0.9% Inj 500 ML IV.SIG SCH ×2 (00:39→11:45)
[2018-04-14 02:14] LABS: Anion Gap 6 meq/L (5-15); Blood Urea Nitrogen 12 mg/dL (7-18); Calcium 8.8 mg/dL (8.5-10.1); Carbon Dioxide 29.6 meq/L (21.0-32.0); Chloride 108 meq/L (98-107); Glomerular Filtration Rate Greater Than 89 mL/min (>89); Glucose,Random 71 mg/dL (74-106); Potassium 3.3 meq/L (3.5-5.1); Sodium 144 meq/L (136-145)
[2018-04-14] MEDS: Piperacil/Tazo 3.375 GM Premix 3.375 GM/50 ML PIGGYBACK IV.SIG SCH ×2 (03:44→08:32)
[2018-04-14] MEDS: Chlorhexidine Gluconate 2% 1 Pack (2 Cloths) TOPICAL SCH (04:11)
[2018-04-14 05:00] LABS: Baso # (Auto) 0.1 th/mm3 (0.0-0.2); Baso % (Auto) 0.5 % (0.0-2.0); Eos # (Auto) 0.3 th/mm3 (0.0-0.4); Eos % (Auto) 2.6 % (0.0-4.0); Hematocrit 29.6 % (39.0-51.0); Hemoglobin 10.1 gm/dL (13.0-17.0); Lymph % (Auto) 18.5 % (9.0-44.0); Mean Corpuscular HGB Conc 34.3 % (32.0-36.0); Mean Corpuscular Hemoglobin 28.5 pg (27.0-34.0); Mean Corpuscular Volume 83.1 fL (80.0-100.0); Mean Platelet Volume 7.5 fL (7.0-11.0); Mono # (Auto) 0.8 th/mm3 (0.0-0.9); Mono % (Auto) 7.1 % (0.0-8.0); Neut # (Auto) 7.8 th/mm3 (1.8-7.7); Neut % (Auto) 71.3 % (16.0-70.0); Platelet Count 324 th/mm3 (150-450); Red Blood Count 3.55 mil/mm3 (4.50-5.90); Red Cell Distribution Width 13.7 % (11.6-17.2)
[2018-04-14] MEDS: Insulin NovoLOG Aspart Correctional Sugar Inj SQ SCH ×4 (07:53→23:10)
[2018-04-14] MEDS: Famotidine PF Inj 20 MG/2 ML Vial IV.PUSH SCH ×2 (08:33→21:19)
[2018-04-14] MEDS: Insulin Detemir Inj 1,000 UNIT/10 ML Vial SQ SCH ×2 (08:34→21:19)
[2018-04-14] MEDS: hydroCHLOROthiazide 25 MG Tablet PO SCH (08:35)
[2018-04-14] MEDS: amLODIPine 10 MG Tablet PO SCH (08:35)
[2018-04-14] MEDS: Senna/Docusate Sodium 8.6/50 MG Tablet PO SCH ×2 (08:35→21:19)
[2018-04-14] MEDS: Acetaminophen 325 MG Tablet PO PRN (08:45)
--- NOTE | 2018-04-14 09:29 | P.PNCC ---
Subjective Subjective Remarks/Hospital Course: 04/11: Patient is status post emergent surgery for acute postoperative left carotid hemorrhage. Patient complains of left neck pain currently 12/06, pain meds being administered peer patient neurologically intact. 04/12: Afebrile . The patient remained hypertensive yesterday, list obtained from family and antihypertensive home medications were resumed. Cleviprex now decreased to 4 mg/hour. The patient continued to be hyperglycemic during the day yesterday, Levemir initiated 15 mg twice daily this a.m.. Diet change to cardiac diet carb controlled. 04/13: Blood pressure well controlled patient remains on home antihypertensive medications per 11 Prax discontinued yesterday at 2 PM. Patient tolerating a diet, glucose well controlled with Levemir dosing. No bowel movement since admission bowel regimen instituted. Left neck dressing remains clean dry and intact and intact with small amount of drainage noted. Patient continues to have periods of being confusion, intermittently. Culture revealed staph aureus vancomycin continued. 04/14: Objective Vital Signs / I&O: Vital Signs 04/13/18 11:00 04/13/18 12:00 04/13/18 15:00 Temperature 98.6 F Pulse Rate 70 67 96 H Respiratory Rate 17 Blood Pressure 144/67 H Pulse Oximetry 98 04/13/18 15:50 04/13/18 19:40 04/13/18 21:00 Temperature 98.7 F 98.3 F Pulse Rate 78 78 Respiratory Rate 16 18 Blood Pressure 159/93 H 163/92 H Pulse Oximetry 98 98 98 04/13/18 23:00 04/14/18 00:00 04/14/18 03:00 Temperature 98.7 F Pulse Rate 84 64 70 Respiratory Rate 18 Blood Pressure 154/86 H Pulse Oximetry 99 04/14/18 03:46 04/14/18 04:00 04/14/18 07:00 Temperature 98.5 F Pulse Rate 80 70 Respiratory Rate 18 18 Blood Pressure 144/85 H Pulse Oximetry 95 04/14/18 08:00 04/14/18 09:00 Temperature 98.4 F Pulse Rate 78 Respiratory Rate 18 Blood Pressure 152/76 H Pulse Oximetry 97 97 Intake & Output 04/13/18 04/14/18 04/14/18 18:59 06:59 18:59 Intake Total 1547.5 / 1547.5 1098 / 1098 Output Total 1075 / 1075 1225 / 1225 Balance 472.5 / 472.5 -127 / -127 Weight 81 kg Intake: IV 617.5 / 617.5 618 / 618 Zosyn 3.375 GM Premix 3.375 gm 100 / 100 100 / 100 In 50 ml @ 100 mls/hr IV.SIG Q6H DIANE Rx#:[id number] Vancomycin Inj 1,750 MG In NS 517.5 / 517.5 518 / 518 Inj 500 ML @ 250 mls/hr IV.SIG Q12H DIANE Rx#:[id number] Oral 930 / 930 480 / 480 Output: Urine 1075 / 1075 1225 / 1225 Other: Date of Last Bowel Movement 04/13/18 # Bowel Movements 2 0 Result Diagrams: 04/14/18 03:33 04/14/18 00:30 Objective Remarks: GENERAL: A well-developed well-nourished -[place] male asleep but easily arousable SKIN: Warm and dry. Left neck dressing intact HEAD: Atraumatic. Normocephalic. EYES: Pupils equal and round. No scleral icterus. No injection or drainage. ENT: No nasal bleeding or discharge. Mucous membranes pink and moist. NECK: Trachea midline. No JVD. Left occlusive dressing C/D/I, no signs of bleeding CARDIOVASCULAR: Normal rate, regular rhythm. RESPIRATORY: No accessory muscle use. Clear to auscultation. Breath sounds equal bilaterally. GASTROINTESTINAL: Abdomen soft, non-tender, nondistended. No guarding. MUSCULOSKELETAL: Extremities without clubbing, cyanosis, or edema. No obvious deformities. NEUROLOGICAL: Awake and alert. RASS 0. No gross focal/sensory deficits. Follows commands in all 4 extremities. Noted right-sided upper and lower extremity weakness. Expressive aphasia . Noted continued periods of intermittent confusion. Assessment and Plan - Problem List (1) Diabetes mellitus Code(s): E11.9 - Type 2 diabetes mellitus without complications Status: Acute (2) Hypertension Code(s): I10 - Essential (primary) hypertension Status: Acute (3) Dyslipidemia Code(s): E78.5 - Hyperlipidemia, unspecified Status: Acute - Assessment and Plan Plan: Acute post-operative left carotid hemorrhage -Status post Emergent neck exploration with excision of infected left carotid artery and common carotid to ICA bypass, with evacuation of hematoma, POD #0 -CCA-ICA bypass -Possible prior surgery wound infection -Broad-spectrum antibiotic -BP control with SBP goal [id number] discontinued 04/12/18@1400 -Further management per vascular surgery- Plavix 75 mg/day (home medication) defer to vascular surgery regarding management Prior surgery wound infection Left neck hematoma -Vancomycin/Zosyn (day 3) -Blood cultures -Neck culturestaph aureus -Follow-up and de-escalate per sensitivity Diabetes -Insulin sliding scale -Continue detemir 15 units twice daily Hypertension -Cleviprex drip as needed to keep SBP 140-160,9dc'd 04/12 @ 1400 -Continue Norvasc 10 mg/day, metoprolol 50 mg XL, losartan 100 mg/d, hydrochlorothiazide 25 mg/day Hypokalemia -Repletion per ICU protocol, potassium level 3.4 Dyslipidemia -Atorvastatin 20 mg HS DVT GI prophylaxis -Teds SCDs -Pharmacological DVT prophylaxis per vascular surgery -Pepcid Level 3 follow-up
--- NOTE | 2018-04-14 10:32 | P.PNVS ---
Subjective Subjective/Hospital Course: Setting in bed tolerating diet Denies any pain Objective Vital Signs / I&O: Vital Signs 04/13/18 11:00 04/13/18 12:00 04/13/18 15:00 Temperature 98.6 F Pulse Rate 70 67 96 H Respiratory Rate 17 Blood Pressure 144/67 H Pulse Oximetry 98 04/13/18 15:50 04/13/18 19:40 04/13/18 21:00 Temperature 98.7 F 98.3 F Pulse Rate 78 78 Respiratory Rate 16 18 Blood Pressure 159/93 H 163/92 H Pulse Oximetry 98 98 98 04/13/18 23:00 04/14/18 00:00 04/14/18 03:00 Temperature 98.7 F Pulse Rate 84 64 70 Respiratory Rate 18 Blood Pressure 154/86 H Pulse Oximetry 99 04/14/18 03:46 04/14/18 04:00 04/14/18 07:00 Temperature 98.5 F Pulse Rate 80 70 Respiratory Rate 18 18 Blood Pressure 144/85 H Pulse Oximetry 95 04/14/18 08:00 04/14/18 09:00 Temperature 98.4 F Pulse Rate 78 Respiratory Rate 18 Blood Pressure 152/76 H Pulse Oximetry 97 97 Intake & Output 04/13/18 04/14/18 04/14/18 18:59 06:59 18:59 Intake Total 1547.5 / 1547.5 1098 / 1098 Output Total 1075 / 1075 1225 / 1225 Balance 472.5 / 472.5 -127 / -127 Weight 81 kg Intake: IV 617.5 / 617.5 618 / 618 Zosyn 3.375 GM Premix 3.375 gm 100 / 100 100 / 100 In 50 ml @ 100 mls/hr IV.SIG Q6H DIANE Rx#:[id number] Vancomycin Inj 1,750 MG In NS 517.5 / 517.5 518 / 518 Inj 500 ML @ 250 mls/hr IV.SIG Q12H DIANE Rx#:[id number] Oral 930 / 930 480 / 480 Output: Urine 1075 / 1075 1225 / 1225 Other: Date of Last Bowel Movement 04/13/18 # Bowel Movements 2 0 Physical Exam: Alert awake oriented x2 Sensory/motor intact bilaterally Left neck incision clean dry intact with no hematoma. Laboratory Results - last 24 hr 04/13/18 04/13/18 04/13/18 10:27 11:44 16:31 WBC RBC Hgb Hct MCV MCH MCHC RDW Plt Count MPV Neut % (Auto) Lymph % (Auto) [place] % (Auto) Eos % (Auto) Baso % (Auto) Neut # (Auto) Lymph # (Auto) [place] # (Auto) Eos # (Auto) Baso # (Auto) WBC Differential Differential Comment Sodium Potassium Chloride Carbon Dioxide Anion Gap BUN Creatinine Estimated GFR POC Glucose 220 H 201 H Random Glucose Calcium Vancomycin Trough 5.7 04/13/18 04/14/18 04/14/18 20:50 00:30 03:33 WBC 11.0 RBC 3.55 L Hgb 10.1 L Hct 29.6 L MCV 83.1 MCH 28.5 MCHC 34.3 RDW 13.7 Plt Count 324 MPV 7.5 Neut % (Auto) 71.3 H Lymph % (Auto) 18.5 [place] % (Auto) 7.1 Eos % (Auto) 2.6 Baso % (Auto) 0.5 Neut # (Auto) 7.8 H Lymph # (Auto) 2.0 [place] # (Auto) 0.8 Eos # (Auto) 0.3 Baso # (Auto) 0.1 WBC Differential . Differential Comment Auto diff final Sodium 144 Potassium 3.3 L Chloride 108 H Carbon Dioxide 29.6 Anion Gap 6 BUN 12 Creatinine 1.02 Estimated GFR Greater than 89 POC Glucose 252 H Random Glucose 71 L Calcium 8.8 Vancomycin Trough 04/14/18 07:30 WBC RBC Hgb Hct MCV MCH MCHC RDW Plt Count MPV Neut % (Auto) Lymph % (Auto) [place] % (Auto) Eos % (Auto) Baso % (Auto) Neut # (Auto) Lymph # (Auto) [place] # (Auto) Eos # (Auto) Baso # (Auto) WBC Differential Differential Comment Sodium Potassium Chloride Carbon Dioxide Anion Gap BUN Creatinine Estimated GFR POC Glucose 160 H Random Glucose Calcium Vancomycin Trough Microbiology 04/10/18 23:56 Gram Stain - Final Wound - Neck Wound Culture - Final Staphylococcus aureus Assessment and Plan - Plan POD#3 s/p emergent carotid replacement 1. OOB 2. Final intraoperative cultures showing staph aureus. Zosyn was discontinued this a.m. continue with vancomycin. 3. Stable to transfer out of the ICU. Discharge Planning: likely 3-4 days
[2018-04-14] MEDS ORDERED: Pharmacy Ordered Lab Info OTHER ONE (23:45)
[2018-04-15] MEDS: Vancomycin Inj 1,750 MG in Sodium Chlor 0.9% Inj 500 ML IV.SIG SCH ×2 (00:33→11:53)
[2018-04-15 04:58] LABS: Baso # (Auto) 0.1 th/mm3 (0.0-0.2); Baso % (Auto) 0.5 % (0.0-2.0); Eos # (Auto) 0.2 th/mm3 (0.0-0.4); Eos % (Auto) 1.7 % (0.0-4.0); Hemoglobin 10.1 gm/dL (13.0-17.0); Lymph # (Auto) 1.6 th/mm3 (1.0-4.8); Lymph % (Auto) 15.2 % (9.0-44.0); Mean Corpuscular Hemoglobin 29.2 pg (27.0-34.0); Mean Corpuscular Volume 83.5 fL (80.0-100.0); Mean Platelet Volume 7.1 fL (7.0-11.0); Mono # (Auto) 0.6 th/mm3 (0.0-0.9); Mono % (Auto) 5.6 % (0.0-8.0); Platelet Count 358 th/mm3 (150-450); Red Blood Count 3.47 mil/mm3 (4.50-5.90); Red Cell Distribution Width 13.5 % (11.6-17.2); White Blood Count 10.4 th/mm3 (4.0-11.0)
[2018-04-15] MEDS: Chlorhexidine Gluconate 2% 1 Pack (2 Cloths) TOPICAL SCH (05:04)
[2018-04-15 05:28] LABS: Anion Gap 7 meq/L (5-15); Blood Urea Nitrogen 12 mg/dL (7-18); Calcium 8.8 mg/dL (8.5-10.1); Carbon Dioxide 28.5 meq/L (21.0-32.0); Chloride 106 meq/L (98-107); Glomerular Filtration Rate Greater Than 89 mL/min (>89); Glucose,Random 101 mg/dL (74-106); Potassium 3.5 meq/L (3.5-5.1); Sodium 141 meq/L (136-145)
[2018-04-15] MEDS ORDERED: Labetalol HCl Inj 20 MG/4 ML Vial IV.PUSH PRN (06:45)
[2018-04-15] MEDS: Senna/Docusate Sodium 8.6/50 MG Tablet PO SCH ×2 (08:39→21:30)
[2018-04-15] MEDS: Insulin NovoLOG Aspart Correctional Sugar Inj SQ SCH ×4 (08:40→21:27)
[2018-04-15] MEDS: Famotidine PF Inj 20 MG/2 ML Vial IV.PUSH SCH (08:40)
[2018-04-15] MEDS: amLODIPine 10 MG Tablet PO SCH (08:40)
[2018-04-15] MEDS: hydroCHLOROthiazide 25 MG Tablet PO SCH (08:40)
[2018-04-15] MEDS: Insulin Detemir Inj 1,000 UNIT/10 ML Vial SQ SCH ×2 (08:40→21:28)
--- NOTE | 2018-04-15 10:42 | P.PNVS ---
Subjective Post Op Day #: 4 Procedure: L CCA-ICA bypass for carotid blowout Subjective/Hospital Course: Doing well this morning. Pain controlled. Tolerating diet. Objective Vital Signs / I&O: Vital Signs 04/14/18 11:00 04/14/18 15:00 04/14/18 19:00 Temperature 98.5 F 98.2 F 98.2 F Pulse Rate 80 72 69 Respiratory Rate 18 18 16 Blood Pressure 147/82 H 125/68 151/70 H Pulse Oximetry 98 97 100 04/14/18 20:00 04/14/18 20:58 04/14/18 21:00 Temperature Pulse Rate 66 68 Respiratory Rate Blood Pressure Pulse Oximetry 98 04/14/18 22:00 04/14/18 23:00 04/15/18 00:00 Temperature 98 F Pulse Rate 64 85 62 Respiratory Rate 16 Blood Pressure 146/74 H Pulse Oximetry 100 04/15/18 01:00 04/15/18 02:00 04/15/18 03:00 Temperature 98 F Pulse Rate 66 70 64 Respiratory Rate 16 Blood Pressure 157/77 H Pulse Oximetry 100 04/15/18 04:00 04/15/18 05:00 04/15/18 06:00 Temperature Pulse Rate 75 76 70 Respiratory Rate Blood Pressure Pulse Oximetry 04/15/18 07:00 Temperature 98.0 F Pulse Rate 68 Respiratory Rate 18 Blood Pressure 146/74 H Pulse Oximetry 100 Intake & Output 04/14/18 04/15/18 04/15/18 18:59 06:59 18:59 Intake Total 1400 / 1400 1516 / 1516 Output Total 2820 / 2820 750 / 750 Balance -1420 / -1420 766 / 766 Weight 83 kg Intake: IV 50 / 50 1036 / 1036 Zosyn 3.375 GM Premix 3.375 gm 50 / 50 In 50 ml @ 100 mls/hr IV.SIG Q6H DIANE Rx#:[id number] Vancomycin Inj 1,750 MG In NS 1036 / 1036 Inj 500 ML @ 250 mls/hr IV.SIG Q12H DIANE Rx#:[id number] Oral 1350 / 1350 480 / 480 Output: Urine 2820 / 2820 750 / 750 Other: # Bowel Movements 0 Exam: Left neck wound is clean dry intact. No change in neuro exam Laboratory Results - last 24 hr 04/14/18 04/14/18 04/14/18 11:35 11:36 16:33 WBC RBC Hgb Hct MCV MCH MCHC RDW Plt Count MPV Neut % (Auto) Lymph % (Auto) [place] % (Auto) Eos % (Auto) Baso % (Auto) Neut # (Auto) Lymph # (Auto) [place] # (Auto) Eos # (Auto) Baso # (Auto) WBC Differential Differential Comment Sodium Potassium Chloride Carbon Dioxide Anion Gap BUN Creatinine Estimated GFR POC Glucose 443 H 413 H 220 H Random Glucose Calcium Vancomycin Trough 04/14/18 04/15/18 04/15/18 21:17 00:15 04:33 WBC 10.4 RBC 3.47 L Hgb 10.1 L Hct 29.0 L MCV 83.5 MCH 29.2 MCHC 35.0 RDW 13.5 Plt Count 358 MPV 7.1 Neut % (Auto) 77.0 H Lymph % (Auto) 15.2 [place] % (Auto) 5.6 Eos % (Auto) 1.7 Baso % (Auto) 0.5 Neut # (Auto) 8.0 H Lymph # (Auto) 1.6 [place] # (Auto) 0.6 Eos # (Auto) 0.2 Baso # (Auto) 0.1 WBC Differential . Differential Comment Auto diff final Sodium Potassium Chloride Carbon Dioxide Anion Gap BUN Creatinine Estimated GFR POC Glucose 258 H Random Glucose Calcium Vancomycin Trough 17.3 H 04/15/18 04/15/18 04:33 07:44 WBC RBC Hgb Hct MCV MCH MCHC RDW Plt Count MPV Neut % (Auto) Lymph % (Auto) [place] % (Auto) Eos % (Auto) Baso % (Auto) Neut # (Auto) Lymph # (Auto) [place] # (Auto) Eos # (Auto) Baso # (Auto) WBC Differential Differential Comment Sodium 141 Potassium 3.5 Chloride 106 Carbon Dioxide 28.5 Anion Gap 7 BUN 12 Creatinine 0.95 Estimated GFR Greater than 89 POC Glucose 156 H Random Glucose 101 Calcium 8.8 Vancomycin Trough Assessment and Plan - Plan POD#4 s/p emergent carotid replacement 1. Will need 6 weeks of IV vancomycin. Consulted the vascular access team for PICC line placement. 2. Increase activity. 3. Possible DC home in 1-2 days with home health. Discharge Planning: likely 3-4 days
--- NOTE | 2018-04-15 11:38 | P.PNIM ---
Subjective Interval history: 57yo aam admitted with acute hemorrage from Left carotid s/p LCEA 03/27/18 in [place] he was found to have an expanding hematoma of the left neck and taken emergently to the OR for excision of LCA, L CCA to ICA bypass w 6mm PTFE and evacuation of hematoma. on 04/11/18 pt seen and examined, sitting up in bed doing well, denies sob, no cp, no pope, no fever Physical Exam Vital signs: Vital Signs 04/14/18 15:00 04/14/18 19:00 04/14/18 20:00 Temperature 98.2 F 98.2 F Pulse Rate 72 69 66 Respiratory Rate 18 16 Blood Pressure 125/68 151/70 H Pulse Oximetry 97 100 04/14/18 20:58 04/14/18 21:00 04/14/18 22:00 Temperature Pulse Rate 68 64 Respiratory Rate Blood Pressure Pulse Oximetry 98 04/14/18 23:00 04/15/18 00:00 04/15/18 01:00 Temperature 98 F Pulse Rate 85 62 66 Respiratory Rate 16 Blood Pressure 146/74 H Pulse Oximetry 100 04/15/18 02:00 04/15/18 03:00 04/15/18 04:00 Temperature 98 F Pulse Rate 70 64 75 Respiratory Rate 16 Blood Pressure 157/77 H Pulse Oximetry 100 04/15/18 05:00 04/15/18 06:00 04/15/18 07:00 Temperature 98.0 F Pulse Rate 76 70 68 Respiratory Rate 18 Blood Pressure 146/74 H Pulse Oximetry 100 04/15/18 08:00 04/15/18 11:00 Temperature Pulse Rate 94 H 62 Respiratory Rate Blood Pressure Pulse Oximetry Intake & Output 04/14/18 04/15/18 04/15/18 18:59 06:59 18:59 Intake Total 1400 / 1400 1516 / 1516 Output Total 2820 / 2820 750 / 750 Balance -1420 / -1420 766 / 766 Weight 83 kg Intake: IV 50 / 50 1036 / 1036 Zosyn 3.375 GM Premix 3.375 gm 50 / 50 In 50 ml @ 100 mls/hr IV.SIG Q6H DIANE Rx#:[id number] Vancomycin Inj 1,750 MG In NS 1036 / 1036 Inj 500 ML @ 250 mls/hr IV.SIG Q12H DIANE Rx#:[id number] Oral 1350 / 1350 480 / 480 Output: Urine 2820 / 2820 750 / 750 Other: # Bowel Movements 0 Narrative: wdwn 57yo aam [id number] left neck bandaged heart s1s2 reg lungs clear no wrr abd soft nondt pos bs ext no edema, no cald tenderness Urinary Catheter Management Indwelling Urethral Catheter: Cath placed during this visit: yes, but has since been removed by the nurse Reason for continuing: Decision to DC catheter Insertion date: 04/10/18 Insertion time: 23:13 Removal date: 04/11/18 Removal time: 16:30 Results Labs CBC & Chem 7: 04/15/18 04:33 04/15/18 04:33 Assessment and Plan (1) Diabetes mellitus: Code(s): E11.9 - Type 2 diabetes mellitus without complications Status: Acute (2) Hypertension: Code(s): I10 - Essential (primary) hypertension Status: Acute (3) Dyslipidemia: Code(s): E78.5 - Hyperlipidemia, unspecified Status: Acute Plan ACUTE HEMORRHAGE LEFT CAROTID due to ruptured patch post CEA 03/27/18 at other facility -s/p emergent neck exploration and -L CCA excision and CCA-ICA bypass w evacuation of infected hematoma 03/11/18 - cont post op monitoring per vasc sx ANEMIA due to acute hemorrhagic blood loss - stable WOUND INFECTION L CAROTID POA - MSSA growing from intraop wound cx- on vanco, can be changed to po abx. DM insulin dependent uncotnrolled - better cont diet home meds HTN norvasc, metorpolol, hct/losartan DYSLIPIDEMIA on atorvastatin CVA hx w R hemiparesis on asa, plavix dvt prophylaxis - scd disposition - home w [facility] when ok w vascular 2-3 days Progress Note: Quality VTE Deep Vein Thrombosis/Pulmonary Embolism Present on Admission: No _ (1) Diabetes mellitus Qualifiers: Diabetes mellitus type: type 2 Diabetes mellitus prison insulin use: Diabetes mellitus complication status: Diabetes mellitus complication detail: Diabetic retinopathy severity: Proliferative retinopathy type: Diabetes mellitus macular edema: Laterality: Chronic kidney disease stage: (2) Hypertension Qualifiers: Hypertension type:
[2018-04-15] MEDS ORDERED: ceFAZolin Inj 1 GM in Sodium Chlor 0.9% Inj 100 ML IV.SIG SCH (11:53)
[2018-04-15] MEDS: ceFAZolin Inj 1 GM in Sodium Chlor 0.9% Inj 100 ML IV.SIG SCH ×2 (16:57→22:30)
--- NOTE | 2018-04-15 19:06 | P.CONID ---
History of Present Illness Service: ID Consult date: 04/15/18 Requesting Physician: Frances Phillips Reason for Consult: staph in culture Primary Care Provider: No Primary Care Physician Chief Complaint: 57 yo male with impressive LEFT neck bleeding History of Present Illness: 57 yo male with multiple medical problems presented with bleeding from L neck incision 2/2 carotid artery surgery done 10 days prior in [place] He underwent emergent L carotid repair with graft adn hematoma evcacuation His culture is positive for MSSA He endorses pain, swelling and incision drainage prior to presentatio, fever, but he is a quite poor historian He has a h/o stroke He has no fever doc'd on this admission, but WBC was elevated with max of 16 K Pt was started on vancomycin, later switched to cefazolin Review of Systems All other systems reviewed negative except as stated in HPI PMFSH - History History Provided By: Significant Other - Medical History Medical History: Medical History (Last Reviewed 04/16/18 @ 07:29 by Sherlyn Andrea MD) Diabetes Hypertension Stroke - Surgical History Surgical History: Surgical History (Last Reviewed 04/16/18 @ 07:29 by Sherlyn Andrea MD) Status post carotid surgery - Family History Family History: Family History (Last Updated 04/16/18 @ 07:29 by Sherlyn Andrea MD) Other Family history non-contributory - Social History I have reviewed the patient's Social History: Yes - Tobacco History Second Hand Smoke Exposure: No Tobacco Use In Past 30 Days: No Smoking Status: Former smoker Tobacco Type: Cigarettes - Alcohol History How Often Do You Have a Drink Containing Alcohol: 2 to 3 times a week - Substance Use History Substance History: No History of Abuse - Travel History Recent Travel in the [place] Within the Last 8 Weeks: No Recent Travel Out of the Country Within the Last 8 Weeks: No - Immunization History Tetanus Immunization: >5 Years Hx Influenza Vaccine This Season: No Medications and Allergies Active Medications: Active Medications Acetaminophen (Tylenol) 650 mg PO Q6H PRN PRN Reason: PAIN 1-10 AND/OR FEVER >101F Last Admin: 04/14/18 08:45 Dose: 650 mg Hydrocodone Bitart/Acetaminophen ([place]ren 5/325) 1 tab PO Q4H PRN PRN Reason: PAIN SCALE 1 TO 10 Last Admin: 04/15/18 08:40 Dose: 1 tab Al Hydroxide/Mg Hydroxide (Milk Of Katherine Pineda) 30 ml PO Q12H PRN PRN Reason: Mild Constipation Last Admin: 04/12/18 14:06 Dose: 30 ml Albuterol (Duoneb Neb (Prn)) 1 ampul NEB Q2HR NEB PRN PRN Reason: WHEEZING Amlodipine Besylate (Norvasc) 10 mg PO DAILY [facility] Last Admin: 04/15/18 08:40 Dose: 10 mg Aspirin (Aspirin Chew) 81 mg PO DAILY [facility] Last Admin: 04/15/18 08:40 Dose: 81 mg Atorvastatin Calcium (Lipitor) 20 mg PO HS [facility] Last Admin: 04/14/18 21:19 Dose: 20 mg Bacitracin (Baciguent Oint) 1 applicatio TOPICAL BID [facility] Last Admin: 04/15/18 08:40 Dose: 1 applicatio Bisacodyl (Dulcolax Supp) 10 mg RECTAL DAILY PRN PRN Reason: SEVERE CONSITIPATION Chlorhexidine Gluconate (Chlorhexidine 2% Cloth) 3 pack TOPICAL DAILY@0400 [facility] Stop: 04/16/18 03:59 Last Admin: 04/15/18 05:04 Dose: Not Given Chlorhexidine Gluconate (Chlorhexidine 2% Cloth) 3 pack TOPICAL DAILY@0400 PRN PRN Reason: Extra cloth needed Stop: 04/16/18 03:59 Clopidogrel Bisulfate (Plavix) 75 mg PO DAILY [facility] Last Admin: 04/15/18 08:40 Dose: 75 mg Dextrose (D50w Vial) 50 ml IV.PUSH UNSCH PRN PRN Reason: PER HYPOGLYCEMIA PROTOCOL Glucagon (Glucagon Inj) 1 mg OTHER PRN PRN PRN Reason: for Hypoglycemia Protocol Hydrochlorothiazide (Hydrodiuril) 25 mg PO DAILY [facility] Last Admin: 04/15/18 08:40 Dose: 25 mg Hydromorphone HCl (Dilaudid Pf Inj) 1 mg IV.PUSH Q4H PRN PRN Reason: PAIN SCALE 6 TO 10 Last Admin: 04/13/18 00:08 Dose: 1 mg Clevidipine (Cleviprex Inj) 25 mg in 50 mls @ 2 mls/hr IV.CONT TITRATE PRN; Protocol PRN Reason: Per protocol Last Titration: 04/12/18 14:06 Dose: Infused Cefazolin Sodium 1 gm/ Sodium (Chloride) 100 mls @ 100 mls/hr IV.SIG Q8H [facility] Last Admin: 04/15/18 16:57 Dose: 100 mls/hr Insulin Aspart (Novolog Insulin Correctional Sugar Inj) 0 unit SQ ACHS [facility]; Protocol Last Admin: 04/15/18 16:57 Dose: Not Given Insulin Detemir (Levemir Inj) 15 unit SQ BID [facility] Last Admin: 04/15/18 08:40 Dose: 15 unit Labetalol HCl (Trandate Inj) 10 mg IV.PUSH Q4H PRN PRN Reason: SBP > 160 DBP > 90 Lactulose (Lactulose Liq) 30 ml PO DAILY PRN PRN Reason: SEVERE CONSITIPATION Last Admin: 04/13/18 09:14 Dose: 30 ml Losartan Potassium (Cozaar) 100 mg PO DAILY [facility] Last Admin: 04/15/18 08:40 Dose: 100 mg Metoprolol Succinate (Toprol Xl) 50 mg PO DAILY [facility] Last Admin: 04/15/18 08:40 Dose: 50 mg Ondansetron HCl (Zofran Inj) 4 mg IV.PUSH Q6H PRN PRN Reason: NAUSEA OR VOMITING Senna/Docusate Sodium (Viviane-Colace) 1 tab PO BID [facility] Last Admin: 04/15/18 08:39 Dose: Not Given Sennosides (Senokot) 17.2 mg PO Q12H PRN PRN Reason: Moderate Constipation Sodium Chloride (Ns Flush) 2 ml IV.FLUSH BID [facility] Last Admin: 04/15/18 15:26 Dose: 2 ml Sodium Chloride (Ns Flush) 2 ml IV.FLUSH PRN PRN PRN Reason: FLUSH AFTER USING IV ACCESS Temazepam (Restoril) 15 mg PO HS PRN PRN Reason: INSOMNIA Allergies Allergy/AdvReac Type Severity Reaction Status Date / Time No Known Allergies Allergy Verified 04/10/18 21:54 Home Medications Medication Instructions Recorded Confirmed Type amlodipine 10 mg PO DAILY 04/11/18 04/11/18 History atorvastatin 20 mg PO DAILY 04/11/18 04/11/18 History baclofen 10 mg PO BID 04/11/18 04/11/18 History clopidogrel [Plavix] 75 mg PO DAILY 04/11/18 04/11/18 History glipizide 5 mg PO BID 04/11/18 04/11/18 History insulin glargine [Lantus U-100 15 unit SUBCUT DAILY 04/11/18 04/11/18 History Insulin] losartan-hydrochlorothiazide 1 tab PO DAILY 04/11/18 04/11/18 History metformin 1,000 mg PO BID 04/11/18 04/11/18 History metoprolol succinate 50 mg PO DAILY 04/11/18 04/11/18 History Exam Vital signs: Vital Signs 04/14/18 19:00 04/14/18 20:00 04/14/18 20:58 Temperature 98.2 F Pulse Rate 69 66 Respiratory Rate 16 Blood Pressure 151/70 H Pulse Oximetry 100 98 04/14/18 21:00 04/14/18 22:00 04/14/18 23:00 Temperature 98 F Pulse Rate 68 64 85 Respiratory Rate 16 Blood Pressure 146/74 H Pulse Oximetry 100 04/15/18 00:00 04/15/18 01:00 04/15/18 02:00 Temperature Pulse Rate 62 66 70 Respiratory Rate Blood Pressure Pulse Oximetry 04/15/18 03:00 04/15/18 04:00 04/15/18 05:00 Temperature 98 F Pulse Rate 64 75 76 Respiratory Rate 16 Blood Pressure 157/77 H Pulse Oximetry 100 04/15/18 06:00 04/15/18 07:00 04/15/18 08:00 Temperature 98.0 F Pulse Rate 70 68 94 H Respiratory Rate 18 Blood Pressure 146/74 H Pulse Oximetry 100 04/15/18 11:00 04/15/18 12:00 04/15/18 13:00 Temperature 98.2 F Pulse Rate 76 68 70 Respiratory Rate 18 Blood Pressure 124/68 Pulse Oximetry 100 04/15/18 14:00 04/15/18 15:00 04/15/18 16:00 Temperature 98.0 F Pulse Rate 64 62 64 Respiratory Rate 18 Blood Pressure 137/71 Pulse Oximetry 100 04/15/18 17:00 04/15/18 18:00 Temperature Pulse Rate 76 72 Respiratory Rate Blood Pressure Pulse Oximetry Intake & Output 04/14/18 04/15/18 04/15/18 18:59 06:59 18:59 Intake Total 1400 / 1400 1516 / 1516 1100 / 1100 Output Total 2820 / 2820 750 / 750 1800 / 1800 Balance -1420 / -1420 766 / 766 -700 / -700 Weight 83 kg Intake: IV 50 / 50 1036 / 1036 Zosyn 3.375 GM Premix 3.375 gm 50 / 50 In 50 ml @ 100 mls/hr IV.SIG Q6H DIANE Rx#:[id number] Vancomycin Inj 1,750 MG In NS 1036 / 1036 Inj 500 ML @ 250 mls/hr IV.SIG Q12H DIANE Rx#:[id number] Oral 1350 / 1350 480 / 480 1100 / 1100 Output: Urine 2820 / 2820 750 / 750 1800 / 1800 Other: # Bowel Movements 0 1 - Constitutional no acute distress, average body habitus - Routine HEENT Exam Head: Present: normocephalic, atraumatic Eye: Present: EOMI, PERRL ENT: Present: mucous membranes moist, oropharynx clear - Routine Neck Exam Present: supple Comments: L lateral neck incision is covered with dressing mild edema present + mild serosag d/c o the dressing - Routine Respiratory Exam Present: CTA bilaterally. Absent: decreased breath sounds - Routine Abdominal Exam Present: soft, normoactive bowel sounds. Absent: tenderness, distended, organomegaly, mass - Routine Extremities Exam Absent: cyanosis, clubbing, edema - Routine Skin Exam Present: dry, warm. Absent: jaundice, rash - Routine Neurological Exam Present: alert, oriented X3, CN II-XII intact, motor deficit (mild R side weakness 4+/5). Absent: normal speech (diifculty answering questions, though eventually gives right answer) - Routine Psychiatric Exam Present: cooperative Comments: irritable Results - Labs CBC & Chem 7: 04/15/18 04:33 04/15/18 04:33 Labs: Laboratory Results - last 24 hr 04/14/18 04/15/18 04/15/18 21:17 00:15 04:33 WBC 10.4 RBC 3.47 L Hgb 10.1 L Hct 29.0 L MCV 83.5 MCH 29.2 MCHC 35.0 RDW 13.5 Plt Count 358 MPV 7.1 Neut % (Auto) 77.0 H Lymph % (Auto) 15.2 [place] % (Auto) 5.6 Eos % (Auto) 1.7 Baso % (Auto) 0.5 Neut # (Auto) 8.0 H Lymph # (Auto) 1.6 [place] # (Auto) 0.6 Eos # (Auto) 0.2 Baso # (Auto) 0.1 WBC Differential . Differential Comment Auto diff final Sodium Potassium Chloride Carbon Dioxide Anion Gap BUN Creatinine Estimated GFR POC Glucose 258 H Random Glucose Calcium Vancomycin Trough 17.3 H 04/15/18 04/15/18 04/15/18 04:33 07:44 11:51 WBC RBC Hgb Hct MCV MCH MCHC RDW Plt Count MPV Neut % (Auto) Lymph % (Auto) [place] % (Auto) Eos % (Auto) Baso % (Auto) Neut # (Auto) Lymph # (Auto) [place] # (Auto) Eos # (Auto) Baso # (Auto) WBC Differential Differential Comment Sodium 141 Potassium 3.5 Chloride 106 Carbon Dioxide 28.5 Anion Gap 7 BUN 12 Creatinine 0.95 Estimated GFR Greater than 89 POC Glucose 156 H 301 H Random Glucose 101 Calcium 8.8 Vancomycin Trough 04/15/18 16:54 WBC RBC Hgb Hct MCV MCH MCHC RDW Plt Count MPV Neut % (Auto) Lymph % (Auto) [place] % (Auto) Eos % (Auto) Baso % (Auto) Neut # (Auto) Lymph # (Auto) [place] # (Auto) Eos # (Auto) Baso # (Auto) WBC Differential Differential Comment Sodium Potassium Chloride Carbon Dioxide Anion Gap BUN Creatinine Estimated GFR POC Glucose 92 Random Glucose Calcium Vancomycin Trough - Imaging Neck CTA 04/10/18 21:58 CONCLUSION: 1. No significant carotid stenosis. 2. Large hematoma left neck. Assessment and Plan - Plan L carotid bleeding 2/2 likely infected carotid patch , MSSA sp Excision of infected left carotid artery and Common carotid artery to internal carotid artery bypass with 6 mm PTFE. sp Evacuation of neck hematoma. cefazolin 2 gm q 8 hrs anticipate long 6 + weeks of IV abx fu blood clx dw RN
[2018-04-16] MEDS: ceFAZolin Inj 1 GM in Sodium Chlor 0.9% Inj 100 ML IV.SIG SCH (05:50)
[2018-04-16] MEDS ORDERED: ceFAZolin Inj 2 GM in Sodium Chlor 0.9% Inj 100 ML IV.SIG SCH (07:36)
--- NOTE | 2018-04-16 07:52 | P.PNVS ---
Subjective Post Op Day #: 5 Procedure: L CCA-ICA bypass for carotid blowout Subjective/Hospital Course: sitting in chair, no distress eating breakfast Objective Vital Signs / I&O: Vital Signs 04/15/18 08:00 04/15/18 11:00 04/15/18 12:00 Temperature 98.2 F Pulse Rate 94 H 76 68 Respiratory Rate 18 Blood Pressure 124/68 Pulse Oximetry 100 04/15/18 13:00 04/15/18 14:00 04/15/18 15:00 Temperature 98.0 F Pulse Rate 70 64 62 Respiratory Rate 18 Blood Pressure 137/71 Pulse Oximetry 100 04/15/18 16:00 04/15/18 17:00 04/15/18 18:00 Temperature Pulse Rate 64 76 72 Respiratory Rate Blood Pressure Pulse Oximetry 04/15/18 19:00 04/15/18 20:00 04/15/18 21:00 Temperature 98.8 F Pulse Rate 78 63 78 Respiratory Rate 19 Blood Pressure 166/77 H Pulse Oximetry 100 04/15/18 22:00 04/15/18 23:00 04/16/18 00:00 Temperature 98.6 F Pulse Rate 78 84 77 Respiratory Rate 18 Blood Pressure 160/74 H Pulse Oximetry 98 04/16/18 01:00 04/16/18 02:00 04/16/18 03:00 Temperature 98.6 F Pulse Rate 84 69 66 Respiratory Rate 18 Blood Pressure 153/72 H Pulse Oximetry 98 04/16/18 04:00 04/16/18 05:00 04/16/18 06:00 Temperature Pulse Rate 66 63 79 Respiratory Rate Blood Pressure Pulse Oximetry Intake & Output 04/15/18 04/16/18 04/16/18 18:59 06:59 18:59 Intake Total 1200 / 1200 340 / 340 Output Total 1800 / 1800 800 / 800 Balance -600 / -600 -460 / -460 Weight 82 kg Intake: IV 100 / 100 100 / 100 Ancef Inj 1 GM In NS Inj 100 ML 100 / 100 100 / 100 @ 100 mls/hr IV.SIG Q8H DIANE Rx #:[id number] Oral 1100 / 1100 240 / 240 Output: Urine 1800 / 1800 800 / 800 Other: # Bowel Movements 1 Exam: neuro baseline L neck continues to look less swollen sutures in place Laboratory Results - last 24 hr 04/15/18 04/15/18 04/15/18 11:51 16:54 20:30 POC Glucose 301 H 92 289 H Assessment and Plan - Plan POD#5 s/p emergent carotid replacement 1. Will need 6 weeks of IV vancomycin (end date 05/23) 2. Increase activity. 3. Dry dressing to neck prn 4. ASA/plavix/statin Discharge Planning: anytime from a vascular surgery standpoint once home IV antibiotics set up will RTC 2-3 weeks for suture removal, carotid duplex and wound check
[2018-04-16] MEDS: Insulin NovoLOG Aspart Correctional Sugar Inj SQ SCH ×4 (09:15→21:48)
[2018-04-16] MEDS: Insulin Detemir Inj 1,000 UNIT/10 ML Vial SQ SCH ×2 (09:16→21:48)
[2018-04-16] MEDS: hydroCHLOROthiazide 25 MG Tablet PO SCH (09:16)
[2018-04-16] MEDS: amLODIPine 10 MG Tablet PO SCH (09:16)
[2018-04-16] MEDS: Senna/Docusate Sodium 8.6/50 MG Tablet PO SCH ×2 (09:17→21:34)
--- NOTE | 2018-04-16 11:12 | P.DCO ---
Physical Therapy Order: Evaluate and treat, Improve ambulation and Strength and gait training Home Health Nursing Order: Medical education, Signs/symptoms of disease process, Diabetic education , Medication education-adverse effect, Wound care and dressing changes, Nursing assessment with vital signs and IV medication administration Case Management Consult Case Management Consult-Home Health: Yes I have seen patient Gustavo Boo on 04/16/18. My clinical findings support the need for the requested home health care services because: Limited mobility due to disease progression, Deconditioned with increased weakness, Medication compliance is questionable, Need for psychosocial assistance, Impaired cognition/judgement, High risk of falls, Infection with risk of complications and Injectable medication education/administration I certify that my clinical findings support that this patient is homebound because: Post-op weakness, Unsteady gait/balance, Unsafe to leave home unassisted, Need for psychosocial assistance, Non-ambulatory: confined to bed or chair, Unable to use public transportation and Poor cardiac reserve
--- NOTE | 2018-04-16 11:23 | P.DS ---
DS: Providers Date of admission: 04/10/18 22:24 Primary care physician: No Primary Care Physician Consults: 04/11/18 02:04 Consult to Vascular Surgery Routine Consulting Provider: Ray Rubin Reason for Consultation: Add to List. Patient has already been seen Spoke with:: Dr. Rubin Date Notified:: 04/11/18 Time Notified:: 02:04 Ordering Provider: AFTAB 04/14/18 11:24 Consult to Hospitalist Routine Consulting Provider: Alis Tse Reason for Consultation: Patient status post carotid artery rupture status second status post left CEA, now repaired. Wound revealed staph aureus. Patient on vancomycin. Notified:: Service Spoke with:: RUSSEL Date Notified:: 04/14/18 Time Notified:: 11:27 Comments:: Ordering Provider: MAYRA 04/15/18 06:30 Consult to Infectious Diseases Routine Consulting Provider: Sherlyn Andrea Active Directory Engineer:: Sherlyn Andrea Reason for Consultation: left neck wound infection with left carotid hemorrhage , underwent emergent bypass. Wound culture Staph aureus. Please evaluate for antibiotic coverage Notified:: Service Spoke with:: Emile Date Notified:: 04/15/18 Time Notified:: 06:46 Ordering Provider: MAYRA 04/16/18 10:58 HUB Only Consult Order Routine Consulting Provider: Shanika Beltran Brief History from admission: 57 year old male presents with a history of approximately 30-40 minutes prior to arrival standing up from the couch after watching television at which time his fiance noted that he was bleeding heavily from his neck. The patient has a recent history of carotid surgery on the left side on March 27 in [place]. She is unsure of what type of surgery was done, however she reports that it was done because of the blockage in the carotid artery. 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 His fiance reports that he has memory difficulties related to his prior stroke. She reports that in January he also had 2 small strokes. He is on Plavix because of his prior history of stroke. The patient was noted by fire rescue to have a pulsatile bleed from the left side of his neck. Pressure was applied. Bleeding was able to be controlled, however the patient was noted to have an expanding hematoma of the left side of the neck. The patient was noted to have an episode of what appeared to be possible seizure versus syncope upon ambulance services arrival to have an episode of syncope, versus seizure activity where his eyes rolled back in his head deviated to the right side associated with a brief episode of shaking. He was taken emergently to operating room for excision of left carotid artery, left CCA to ICA bypass with 6mm PTFE and evacuation of edema. DS: Summary Mr. Boo a pleasant 57-year-old -[place] male who was admitted to the hospital on 04/10/2018 due to left carotid artery bleeding noted by his fiance. Patient recently had left carotid surgery in [place] due to carotid stenosis. He was on Plavix due to stroke in 2017. When EMS arrived, patient was noted to have an expanding hematoma of the left side of the neck. Acute bleeding was controlled. Patient was taken to operating room emergently upon arrival for left carotid artery excision, left CCA to ICA bypass with 6 mm PTFE and evacuation of the hematoma. Infectious disease was consulted due to MSSA positive culture results from the neck wound. Blood cultures negative. Infectious disease recommended 6+ weeks of IV cefazolin. Vascular surgery evaluated patient on 04/16/2018 and recommended discharge with follow-up in the clinic in 2-3 weeks for suture removal as well as carotid duplex and wound check. On 04/16/2018, I discussed with case management. If we can arrange home health as well as IV infusions, patient can be discharged home with home health on IV antibiotics. Front-wheeled walker arranged. Time Spent with Patient Total time spent providing and/or coordinating discharge services: Less than 30 minutes Quality: VTE Deep Vein Thrombosis/Pulmonary Embolism Present on Admission: No Exam Narrative Exam Narrative: GENERAL: Well-nourished, well-developed patient. SKIN: Warm and dry. HEAD: Normocephalic. EYES: No scleral icterus. No injection or drainage. NECK: Supple, trachea midline. No JVD or lymphadenopathy. Left sided carotid surgery changes noted. No erythema or drainage. CARDIOVASCULAR: Regular rate and rhythm without murmurs, gallops, or rubs. RESPIRATORY: Breath sounds equal bilaterally. No accessory muscle use. GASTROINTESTINAL: Abdomen soft, non-tender, nondistended. MUSCULOSKELETAL: No cyanosis, or edema. BACK: Nontender without obvious deformity. No CVA tenderness. Results Labs on day of discharge: Labs from last 24 hours 04/16/18 04/15/18 04/15/18 08:18 20:30 16:54 POC Glucose 310 H 289 H 92 04/15/18 11:51 POC Glucose 301 H Impressions ITS Impressions Neck CTA 04/10/18 21:58 CONCLUSION: 1. No significant carotid stenosis. 2. Large hematoma left neck. Discharge Plan Discharge Disposition Patient Disposition: Disch W/Home Health Service Discharge Condition Condition: Good Discharge Order Discharge Orders: Discharge Order (Routine); Ordered 04/16/18 Ordered By: Jodie Grove Discharge Details Anticipated Discharge Date: 04/16/18 Discharge Comment: Discharge once Home health and IV infusion arranged. Physicians Team ED Provider: Jessica Liz Primary Care Provider: Primary Care Quin Kohler Attending Provider: Jdoie Grove Other Providers: Ray Rubin ; Sherlyn Andrea ; Karen [facility] Rxs /Orders / Referrals /Forms Prescriptions: New hydrocodone-acetaminophen 5-325 mg Tablet 1 tab PO Q6H PRN (Reason: Pain Scale 1 To 10) Qty: 12 RF: 0 aspirin 81 mg Tablet,Chewable 81 mg PO DAILY Qty: 30 RF: 11 Continue atorvastatin 20 mg Tablet 20 mg PO DAILY RF: 0 insulin glargine [Lantus U-100 Insulin] 100 unit/mL Solution 15 unit SUBCUT DAILY RF: 0 metoprolol succinate 50 mg Tablet Extended Release 24 Hr 50 mg PO DAILY RF: 0 clopidogrel [Plavix] 75 mg Tablet 75 mg PO DAILY RF: 0 losartan-hydrochlorothiazide 100-25 mg Tablet 1 tab PO DAILY RF: 0 baclofen 10 mg Tablet 10 mg PO BID RF: 0 amlodipine 10 mg Tablet 10 mg PO DAILY RF: 0 metformin 1,000 mg Tablet 1,000 mg PO BID RF: 0 glipizide 5 mg Tablet 5 mg PO BID RF: 0 Ambulatory Orders / Order Sets / DME: Walker With Front Wheels (1 each) (Routine) Location: Determined by Patient Ordered By: Jodie Grove Referrals: Primary Care Quin Kohler [Primary Care Provider] - See Instructions Ray Rubin MD [Physician] - See Instructions (Carotid duplex at: 05/03/18 at 930a Clinic visit at: 05/04/18 at 10:30a) Status ED Status: Left Department
--- NOTE | 2018-04-16 12:49 | P.DCO ---
Post Hospital Infusion Therapy - Infusion Therapy Location of Infusion Therapy: Home Health Care IV Infusion Order - Patient Information Patient Weight: 82 kg - Diagnosis (1) MSSA (methicillin susceptible Staphylococcus aureus) infection Code(s): A49.01 - Methicillin susceptible Staphylococcus aureus infection, unspecified site - Administer Medication Cefazolin Dose: 2 grams IV Directions: q 8 hours Start Treatment: 04/16/18 Stop Treatment: 05/27/18 - Additional Information Venous Access: PICC Line Additional Instructions: [x] Peripheral flush and dressing changes per protocol [x] Implanted port and central packing line operator: * Implanted port: 10 ml Normal Saline followed by 5 ml Heparin 100 units/ml Heparin flush after each use and monthly to maintain. [] May leave port accessed during therapy. [] May leave peripheral site accessed for duration of therapy. [x] If patient has SOB or respiratory distress, check oxygen saturation. If less than 90% or clinical signs of respiratory distress, administer oxygen at 2 L/min. via nasal cannula and notify physician. [x] Anaphylaxis/Reaction orders: * Stop infusion. * Keep IV line open with saline flush. * Notify physician. * Monitor vital signs every 15 minutes until symptoms resolve. * Check Oxygen saturation; Oxygen at 2 L/min. via nasal cannula if less than 90% or clinical signs of respiratory distress. * Administer diphenhydramine (Benadryl) 25 mg IV STAT, (unless patient has received as pre-med). May repeat once, if necessary. * Solu-Cortef 250 mg IVP over 30-60 seconds, use 100 mg vials for each dissolution. * Epinephrine (1mg/1 ml) 0.3 mg subcutaneously or IVP now with any signs of respiratory distress. * Check with physician for new additional pre-med orders if patient is re- challenged or re-treated. [x] May remove PICC line when treatment complete, after confirming with Physician. [x] If the patient is admitted to the hospital, the ED, or transferred via [facility] , complete transfer form including medication reconciliation order sheet. Weekly Labs: CBC w/diff, CMP - Case Management Consult Case Management Consult-IVF: Yes - Patient Information Allergies No Known Allergies Allergy (Verified 04/10/18 21:54)
[2018-04-16] MEDS: ceFAZolin 2 GM Premix Inj 2 GM/50 ML PIGGYBACK IV.SIG SCH ×2 (13:00→21:49)
--- NOTE | 2018-04-16 19:43 | P.PNID ---
Subjective Remarks: doing OK no new issues no fever Antibiotics: cefazolin Allergies/Adverse Reactions: Allergies No Known Allergies Allergy (Verified 04/10/18 21:54) Objective Vital Signs 04/15/18 20:00 04/15/18 21:00 04/15/18 22:00 Temperature Pulse Rate 63 78 78 Respiratory Rate Blood Pressure Pulse Oximetry 04/15/18 23:00 04/16/18 00:00 04/16/18 01:00 Temperature 98.6 F Pulse Rate 84 77 84 Respiratory Rate 18 Blood Pressure 160/74 H Pulse Oximetry 98 04/16/18 02:00 04/16/18 03:00 04/16/18 04:00 Temperature 98.6 F Pulse Rate 69 66 66 Respiratory Rate 18 Blood Pressure 153/72 H Pulse Oximetry 98 04/16/18 05:00 04/16/18 06:00 04/16/18 07:00 Temperature 97.6 F Pulse Rate 63 79 80 Respiratory Rate 16 Blood Pressure 136/66 Pulse Oximetry 100 04/16/18 08:00 04/16/18 09:00 04/16/18 10:00 Temperature Pulse Rate 80 90 66 Respiratory Rate Blood Pressure Pulse Oximetry 04/16/18 11:00 04/16/18 12:00 04/16/18 13:00 Temperature 98 F Pulse Rate 64 62 66 Respiratory Rate 17 Blood Pressure 139/70 Pulse Oximetry 100 04/16/18 14:00 04/16/18 15:00 04/16/18 16:00 Temperature 97.9 F Pulse Rate 70 76 76 Respiratory Rate 16 Blood Pressure 151/69 H Pulse Oximetry 99 04/16/18 17:00 04/16/18 18:00 Temperature Pulse Rate 74 89 Respiratory Rate Blood Pressure Pulse Oximetry Intake & Output 04/16/18 04/16/18 04/17/18 06:59 18:59 06:59 Intake Total 340 / 340 870 / 870 Output Total 800 / 800 450 / 450 Balance -460 / -460 420 / 420 Weight 82 kg 82 kg Intake: IV 100 / 100 150 / 150 Ancef 2 GM Premix Inj 2 gm In 50 / 50 50 ml @ 100 mls/hr IV.SIG Q8H [facility] Rx#:[id number] Ancef Inj 1 GM In NS Inj 100 ML 100 / 100 100 / 100 @ 100 mls/hr IV.SIG Q8H [facility] Rx #:[id number] Oral 240 / 240 720 / 720 Output: Urine 800 / 800 450 / 450 Other: Date of Last Bowel Movement 04/15/18 04/16/18 11:13 Blood - Peripheral Aerobic Blood Culture - Pending 04/16/18 11:13 Blood - Peripheral Anaerobic Blood Culture - Pending 04/16/18 11:08 Blood - Peripheral Aerobic Blood Culture - Pending 04/16/18 11:08 Blood - Peripheral Anaerobic Blood Culture - Pending Lab - Hematology Results 04/15/18 04:33 WBC 10.4 RBC 3.47 L Hgb 10.1 L Hct 29.0 L MCV 83.5 MCH 29.2 MCHC 35.0 RDW 13.5 Plt Count 358 MPV 7.1 Neut % (Auto) 77.0 H Lymph % (Auto) 15.2 [place] % (Auto) 5.6 Eos % (Auto) 1.7 Baso % (Auto) 0.5 Neut # (Auto) 8.0 H Lymph # (Auto) 1.6 [place] # (Auto) 0.6 Eos # (Auto) 0.2 Baso # (Auto) 0.1 WBC Differential . Differential Comment Auto diff final Lab - Chemistry Results 04/14/18 04/15/18 04/15/18 21:17 04:33 07:44 Sodium 141 Potassium 3.5 Chloride 106 Carbon Dioxide 28.5 Anion Gap 7 BUN 12 Creatinine 0.95 Estimated GFR Greater than 89 POC Glucose 258 H 156 H Random Glucose 101 Calcium 8.8 04/15/18 04/15/18 04/15/18 11:51 16:54 20:30 Sodium Potassium Chloride Carbon Dioxide Anion Gap BUN Creatinine Estimated GFR POC Glucose 301 H 92 289 H Random Glucose Calcium 04/16/18 04/16/18 04/16/18 08:18 11:59 15:57 Sodium Potassium Chloride Carbon Dioxide Anion Gap BUN Creatinine Estimated GFR POC Glucose 310 H 356 H 99 Random Glucose Calcium Imaging: ITS Impressions Neck CTA 04/10/18 21:58 CONCLUSION: 1. No significant carotid stenosis. 2. Large hematoma left neck. Physical Exam: GENERAL: NAD SKIN: Warm and dry. no rash HEAD: Atraumatic. Normocephalic. EYES: Pupils equal and round. No scleral icterus. No injection or drainage. ENT: No nasal bleeding or discharge. Mucous membranes pink and moist. NECK: Trachea midline. No JVD. Incision is well approximated with small amount of serosang drainage mild edema no substantial erythema noted CARDIOVASCULAR: Regular rate and rhythm. RESPIRATORY: No accessory muscle use. Clear to auscultation. Breath sounds equal bilaterally. GASTROINTESTINAL: Abdomen soft, non-tender, nondistended. Hepatic and splenic margins not palpable. MUSCULOSKELETAL: Extremities without clubbing, cyanosis, or edema. No obvious deformities. NEUROLOGICAL: Awake and alert. No obvious cranial nerve deficits. R hand soil conservationist slightly decreased Normal speech. PSYCHIATRIC: calm, cooperative Assessment and Plan (1) MSSA (methicillin susceptible Staphylococcus aureus) infection Status: Acute Code(s): A49.01 - Methicillin susceptible Staphylococcus aureus infection, unspecified site - Plan L carotid bleeding 2/2 likely infected carotid patch , MSSA sp Excision of infected left carotid artery and Common carotid artery to internal carotid artery bypass with 6 mm PTFE. sp Evacuation of neck hematoma. cefazolin 2 gm q 8 hrs anticipate long - at least 6 + weeks of IV abx fu blood clx picc if neg blood clx OPAT/case mngmt consult dw Caryn Lacey
--- NOTE | 2018-04-16 20:50 | P.PNIM ---
Blood cultures pending. Discussed with ID - we will wait for initial blood cx results then consider PICC line placement within next day or so. D/W CM regarding home health and need for IV abx.
--- NOTE | 2018-04-16 20:58 | P.PNIM ---
Subjective Interval history: Follow up for left carotid artery stenosis, post-surgical infection. Patient is currently doing well. Vascular surgery cleared for discharge. Patient is sitting in his chair. No fever, chills. Tolerating diet well. Physical Exam Vital signs: Vital Signs 04/15/18 21:00 04/15/18 22:00 04/15/18 23:00 Temperature 98.6 F Pulse Rate 78 78 84 Respiratory Rate 18 Blood Pressure 160/74 H Pulse Oximetry 98 04/16/18 00:00 04/16/18 01:00 04/16/18 02:00 Temperature Pulse Rate 77 84 69 Respiratory Rate Blood Pressure Pulse Oximetry 04/16/18 03:00 04/16/18 04:00 04/16/18 05:00 Temperature 98.6 F Pulse Rate 66 66 63 Respiratory Rate 18 Blood Pressure 153/72 H Pulse Oximetry 98 04/16/18 06:00 04/16/18 07:00 04/16/18 08:00 Temperature 97.6 F Pulse Rate 79 80 80 Respiratory Rate 16 Blood Pressure 136/66 Pulse Oximetry 100 04/16/18 09:00 04/16/18 10:00 04/16/18 11:00 Temperature 98 F Pulse Rate 90 66 64 Respiratory Rate 17 Blood Pressure 139/70 Pulse Oximetry 100 04/16/18 12:00 04/16/18 13:00 04/16/18 14:00 Temperature Pulse Rate 62 66 70 Respiratory Rate Blood Pressure Pulse Oximetry 04/16/18 15:00 04/16/18 16:00 04/16/18 17:00 Temperature 97.9 F Pulse Rate 76 76 74 Respiratory Rate 16 Blood Pressure 151/69 H Pulse Oximetry 99 04/16/18 18:00 04/16/18 19:00 04/16/18 20:23 Temperature 98.7 F Pulse Rate 89 84 Respiratory Rate 16 Blood Pressure 181/84 H 147/79 H Pulse Oximetry 99 Intake & Output 04/16/18 04/16/18 04/17/18 06:59 18:59 06:59 Intake Total 340 / 340 870 / 870 Output Total 800 / 800 450 / 450 Balance -460 / -460 420 / 420 Weight 82 kg 82 kg Intake: IV 100 / 100 150 / 150 Ancef 2 GM Premix Inj 2 gm In 50 / 50 50 ml @ 100 mls/hr IV.SIG Q8H [facility] Rx#:[id number] Ancef Inj 1 GM In NS Inj 100 ML 100 / 100 100 / 100 @ 100 mls/hr IV.SIG Q8H [facility] Rx #:[id number] Oral 240 / 240 720 / 720 Output: Urine 800 / 800 450 / 450 Other: Date of Last Bowel Movement 04/15/18 04/16/18 Narrative: GENERAL: Well-nourished, well-developed patient. SKIN: Warm and dry. HEAD: Normocephalic. EYES: No scleral icterus. No injection or drainage. NECK: Supple, trachea midline. No JVD or lymphadenopathy. Left sided carotid surgery changes noted. No erythema or drainage. CARDIOVASCULAR: Regular rate and rhythm without murmurs, gallops, or rubs. RESPIRATORY: Breath sounds equal bilaterally. No accessory muscle use. GASTROINTESTINAL: Abdomen soft, non-tender, nondistended. MUSCULOSKELETAL: No cyanosis, or edema. BACK: Nontender without obvious deformity. No CVA tenderness. Urinary Catheter Management Indwelling Urethral Catheter: Cath placed during this visit: yes, but has since been removed by the nurse Reason for continuing: Decision to DC catheter Insertion date: 04/10/18 Insertion time: 23:13 Removal date: 04/11/18 Removal time: 16:30 Results Labs CBC & Chem 7: 04/15/18 04:33 04/15/18 04:33 Assessment and Plan (1) MSSA (methicillin susceptible Staphylococcus aureus) infection: Code(s): A49.01 - Methicillin susceptible Staphylococcus aureus infection, unspecified site Status: Acute Plan Mr. Boo a pleasant 57-year-old -[place] male who was admitted to the hospital on 04/10/2018 due to left carotid artery bleeding noted by his fiance. Patient recently had left carotid surgery in [place] due to carotid stenosis. He was on Plavix due to stroke in 2017. When EMS arrived, patient was noted to have an expanding hematoma of the left side of the neck. Acute bleeding was controlled. Patient was taken to operating room emergently upon arrival for left carotid artery excision, left CCA to ICA bypass with 6 mm PTFE and evacuation of the hematoma. Infectious disease was consulted due to MSSA positive culture results from the neck wound. Blood cultures negative. Infectious disease recommended 6+ weeks of IV cefazolin. Vascular surgery evaluated patient on 04/16/2018 and recommended discharge with follow-up in the clinic in 2-3 weeks for suture removal as well as carotid duplex and wound check. Infected left carotid artery hematoma Left carotid artery stenosis s/p surgery. Hx of CVA -s/p emergent surgical intervention. -Cx grew MSSA. Pt is currently on Cefazolin per ID recs. -Blood cx pending. If negative, we can place PICC line -Probable discharge within next 24-48 hours. -Continue Aspirin, Plavix, Lipitor Diabetes mellitus Hypertension -Continue Metoprolol, Losartan, Amlodipine, HCTZ -Levemir 15 units BID, sliding scale insulin. Full code. Ambulation, SCDs. Progress Note: Quality VTE Deep Vein Thrombosis/Pulmonary Embolism Present on Admission: No
[2018-04-17] MEDS: ceFAZolin 2 GM Premix Inj 2 GM/50 ML PIGGYBACK IV.SIG SCH ×3 (05:00→21:09)
--- NOTE | 2018-04-17 07:46 | P.PNVS ---
Subjective Post Op Day #: 6 Procedure: L CCA-ICA bypass for carotid blowout Subjective/Hospital Course: looks good minimal drainage from neck markedly less swollen neuro stable ambulated in hallway already today Objective Vital Signs / I&O: Vital Signs 04/16/18 08:00 04/16/18 09:00 04/16/18 10:00 Temperature Pulse Rate 80 90 66 Respiratory Rate Blood Pressure Pulse Oximetry 04/16/18 11:00 04/16/18 12:00 04/16/18 13:00 Temperature 98 F Pulse Rate 64 62 66 Respiratory Rate 17 Blood Pressure 139/70 Pulse Oximetry 100 04/16/18 14:00 04/16/18 15:00 04/16/18 16:00 Temperature 97.9 F Pulse Rate 70 76 76 Respiratory Rate 16 Blood Pressure 151/69 H Pulse Oximetry 99 04/16/18 17:00 04/16/18 18:00 04/16/18 19:00 Temperature 98.7 F Pulse Rate 74 89 74 Respiratory Rate 16 Blood Pressure 181/84 H Pulse Oximetry 99 04/16/18 20:00 04/16/18 20:23 04/16/18 21:00 Temperature Pulse Rate 78 76 Respiratory Rate Blood Pressure 147/79 H Pulse Oximetry 04/16/18 22:00 04/16/18 23:00 04/17/18 00:00 Temperature 98.6 F Pulse Rate 66 73 66 Respiratory Rate 16 Blood Pressure 140/70 Pulse Oximetry 99 04/17/18 01:00 04/17/18 02:00 04/17/18 03:00 Temperature 98.7 F Pulse Rate 64 70 65 Respiratory Rate 16 Blood Pressure 142/68 H Pulse Oximetry 100 04/17/18 04:00 04/17/18 05:00 04/17/18 06:00 Temperature Pulse Rate 60 66 68 Respiratory Rate Blood Pressure Pulse Oximetry Intake & Output 04/16/18 04/17/18 04/17/18 18:59 06:59 18:59 Intake Total 870 / 870 340 / 340 Output Total 450 / 450 975 / 975 Balance 420 / 420 -635 / -635 Weight 82 kg 82 kg Intake: IV 150 / 150 100 / 100 Ancef 2 GM Premix Inj 2 gm In 50 / 50 100 / 100 50 ml @ 100 mls/hr IV.SIG Q8H [facility] Rx#:[id number] Ancef Inj 1 GM In NS Inj 100 ML 100 / 100 @ 100 mls/hr IV.SIG Q8H [facility] Rx #:[id number] Oral 720 / 720 240 / 240 Output: Urine 450 / 450 975 / 975 Other: Date of Last Bowel Movement 04/15/18 04/16/18 Exam: L neck with mild swelling, sutures in tact Laboratory Results - last 24 hr 04/16/18 04/16/18 04/16/18 08:18 11:59 15:57 POC Glucose 310 H 356 H 99 04/16/18 04/17/18 21:39 07:43 POC Glucose 395 H 143 H Assessment and Plan - Plan POD#6 s/p emergent carotid replacement 1. Will need 6 weeks of IV vancomycin (end date 05/23) 2. Increase activity. 3. Dry dressing to neck prn 4. ASA/plavix/statin Discharge Planning: anytime from a vascular surgery standpoint once home IV antibiotics set up will RTC 2-3 weeks for suture removal, carotid duplex and wound check
[2018-04-17] MEDS: hydroCHLOROthiazide 25 MG Tablet PO SCH (08:26)
[2018-04-17] MEDS: amLODIPine 10 MG Tablet PO SCH (08:26)
[2018-04-17] MEDS: Insulin Detemir Inj 1,000 UNIT/10 ML Vial SQ SCH ×2 (08:27→21:09)
[2018-04-17] MEDS: Insulin NovoLOG Aspart Correctional Sugar Inj SQ SCH ×4 (08:27→21:09)
[2018-04-17] MEDS: Senna/Docusate Sodium 8.6/50 MG Tablet PO SCH ×2 (08:28→20:02)
--- NOTE | 2018-04-17 12:26 | P.PNIM ---
Subjective Interval history: Follow up for left carotid artery stenosis, post-surgical infection. Patient is currently doing well. Denies any chest pain, shortness of breath, fever or chills. Physical Exam Vital signs: Vital Signs 04/16/18 13:00 04/16/18 14:00 04/16/18 15:00 Temperature 97.9 F Pulse Rate 66 70 76 Respiratory Rate 16 Blood Pressure 151/69 H Pulse Oximetry 99 04/16/18 16:00 04/16/18 17:00 04/16/18 18:00 Temperature Pulse Rate 76 74 89 Respiratory Rate Blood Pressure Pulse Oximetry 04/16/18 19:00 04/16/18 20:00 04/16/18 20:23 Temperature 98.7 F Pulse Rate 74 78 Respiratory Rate 16 Blood Pressure 181/84 H 147/79 H Pulse Oximetry 99 04/16/18 21:00 04/16/18 22:00 04/16/18 23:00 Temperature 98.6 F Pulse Rate 76 66 73 Respiratory Rate 16 Blood Pressure 140/70 Pulse Oximetry 99 04/17/18 00:00 04/17/18 01:00 04/17/18 02:00 Temperature Pulse Rate 66 64 70 Respiratory Rate Blood Pressure Pulse Oximetry 04/17/18 03:00 04/17/18 04:00 04/17/18 05:00 Temperature 98.7 F Pulse Rate 65 60 66 Respiratory Rate 16 Blood Pressure 142/68 H Pulse Oximetry 100 04/17/18 06:00 04/17/18 07:00 04/17/18 08:00 Temperature 99 F Pulse Rate 68 62 102 H Respiratory Rate 16 Blood Pressure 136/74 Pulse Oximetry 99 04/17/18 09:00 04/17/18 10:00 04/17/18 11:00 Temperature 98.6 F Pulse Rate 74 73 65 Respiratory Rate 24 Blood Pressure 145/65 H Pulse Oximetry 100 04/17/18 12:00 Temperature Pulse Rate 66 Respiratory Rate Blood Pressure Pulse Oximetry Intake & Output 04/16/18 04/17/18 04/17/18 18:59 06:59 18:59 Intake Total 870 / 870 340 / 340 Output Total 450 / 450 975 / 975 Balance 420 / 420 -635 / -635 Weight 82 kg 82 kg Intake: IV 150 / 150 100 / 100 Ancef 2 GM Premix Inj 2 gm In 50 / 50 100 / 100 50 ml @ 100 mls/hr IV.SIG Q8H DIANE Rx#:[id number] Ancef Inj 1 GM In NS Inj 100 ML 100 / 100 @ 100 mls/hr IV.SIG Q8H DIANE Rx #:[id number] Oral 720 / 720 240 / 240 Output: Urine 450 / 450 975 / 975 Other: Date of Last Bowel Movement 04/15/18 04/16/18 04/16/18 Narrative: GENERAL: Well-nourished, well-developed patient. SKIN: Warm and dry. HEAD: Normocephalic. EYES: No scleral icterus. No injection or drainage. NECK: Supple, trachea midline. No JVD or lymphadenopathy. Left sided carotid surgery changes noted. No erythema or drainage. CARDIOVASCULAR: Regular rate and rhythm without murmurs, gallops, or rubs. RESPIRATORY: Breath sounds equal bilaterally. No accessory muscle use. GASTROINTESTINAL: Abdomen soft, non-tender, nondistended. MUSCULOSKELETAL: No cyanosis, or edema. BACK: Nontender without obvious deformity. No CVA tenderness. Urinary Catheter Management Indwelling Urethral Catheter: Cath placed during this visit: yes, but has since been removed by the nurse Reason for continuing: Decision to DC catheter Insertion date: 04/10/18 Insertion time: 23:13 Removal date: 04/11/18 Removal time: 16:30 Results Labs CBC & Chem 7: 04/15/18 04:33 04/15/18 04:33 Labs: Microbiology 04/16/18 11:13 Blood - Peripheral Aerobic Blood Culture - Preliminary No growth in 1 day 04/16/18 11:13 Blood - Peripheral Anaerobic Blood Culture - Preliminary No growth in 1 day 04/16/18 11:08 Blood - Peripheral Aerobic Blood Culture - Preliminary No growth in 1 day 04/16/18 11:08 Blood - Peripheral Anaerobic Blood Culture - Preliminary No growth in 1 day Assessment and Plan (1) MSSA (methicillin susceptible Staphylococcus aureus) infection: Code(s): A49.01 - Methicillin susceptible Staphylococcus aureus infection, unspecified site Status: Acute Plan Mr. Boo a pleasant 57-year-old -B[place] male who was admitted to the hospital on 04/10/2018 due to left carotid artery bleeding noted by his fiance. Patient recently had left carotid surgery in [place] due to carotid stenosis. He was on Plavix due to stroke in 2017. When EMS arrived, patient was noted to have an expanding hematoma of the left side of the neck. Acute bleeding was controlled. Patient was taken to operating room emergently upon arrival for left carotid artery excision, left CCA to ICA bypass with 6 mm PTFE and evacuation of the hematoma. Infectious disease was consulted due to MSSA positive culture results from the neck wound. Blood cultures negative. Infectious disease recommended 6+ weeks of IV cefazolin. Vascular surgery evaluated patient on 04/16/2018 and recommended discharge with follow-up in the clinic in 2-3 weeks for suture removal as well as carotid duplex and wound check. Infected left carotid artery hematoma Left carotid artery stenosis s/p surgery. Hx of CVA -s/p emergent surgical intervention. -Cx grew MSSA. Pt is currently on Cefazolin per ID recs. -Blood cx is negative so far. We can go ahead and place PICC line today. -Probable discharge within next 24-48 hours. -Continue Aspirin, Plavix, Lipitor Diabetes mellitus Hypertension -Continue Metoprolol, Losartan, Amlodipine, HCTZ -Levemir 15-->18 units BID, sliding scale insulin. Full code. Ambulation, SCDs. Progress Note: Quality VTE Deep Vein Thrombosis/Pulmonary Embolism Present on Admission: No
[2018-04-18] MEDS: ceFAZolin 2 GM Premix Inj 2 GM/50 ML PIGGYBACK IV.SIG SCH ×3 (05:07→19:41)
[2018-04-18 05:57] LABS: Glomerular Filtration Rate Greater Than 89 mL/min (>89)
[2018-04-18] MEDS: Insulin NovoLOG Aspart Correctional Sugar Inj SQ SCH ×4 (08:27→21:00)
[2018-04-18] MEDS: Senna/Docusate Sodium 8.6/50 MG Tablet PO SCH ×2 (08:28→21:18)
[2018-04-18] MEDS: amLODIPine 10 MG Tablet PO SCH (08:28)
[2018-04-18] MEDS: hydroCHLOROthiazide 25 MG Tablet PO SCH (08:28)
[2018-04-18] MEDS: Insulin Detemir Inj 1,000 UNIT/10 ML Vial SQ SCH ×2 (08:28→21:00)
[2018-04-18 12:07] VITALS: RESP 18
[2018-04-18 21:13] VITALS: PULSE 73
[2018-04-18 21:14] VITALS: BP 148/74; TEMP 97.9; O2SAT 99
--- NOTE | 2018-04-18 22:09 | P.DS ---
DS: Providers Date of admission: 04/10/18 22:24 Primary care physician: No Primary Care Physician Consults: 04/11/18 02:04 Consult to Vascular Surgery Routine Consulting Provider: Ray Rubin Reason for Consultation: Add to List. Patient has already been seen Spoke with:: Dr. Rubin Date Notified:: 04/11/18 Time Notified:: 02:04 Ordering Provider: AFTAB 04/14/18 11:24 Consult to Hospitalist Routine Consulting Provider: Alis Tse Reason for Consultation: Patient status post carotid artery rupture status second status post left CEA, now repaired. Wound revealed staph aureus. Patient on vancomycin. Notified:: Service Spoke with:: RUSSEL Date Notified:: 04/14/18 Time Notified:: 11:27 Comments:: Ordering Provider: MAYRA 04/15/18 06:30 Consult to Infectious Diseases Routine Consulting Provider: Sherlyn Andrea Bridal Gown Fitter:: Sherlyn Andrea Reason for Consultation: left neck wound infection with left carotid hemorrhage , underwent emergent bypass. Wound culture Staph aureus. Please evaluate for antibiotic coverage Notified:: Service Spoke with:: Emile Date Notified:: 04/15/18 Time Notified:: 06:46 Ordering Provider: MAYRA 04/16/18 10:58 HUB Only Consult Order Routine Consulting Provider: Shanika Beltran Brief History from admission: 57 year old male presents with a history of approximately 30-40 minutes prior to arrival standing up from the couch after watching television at which time his fiance noted that he was bleeding heavily from his neck. The patient has a recent history of carotid surgery on the left side on March 27 in [place]. She is unsure of what type of surgery was done, however she reports that it was done because of the blockage in the carotid artery. 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 His fiance reports that he has memory difficulties related to his prior stroke. She reports that in January he also had 2 small strokes. He is on Plavix because of his prior history of stroke. The patient was noted by fire rescue to have a pulsatile bleed from the left side of his neck. Pressure was applied. Bleeding was able to be controlled, however the patient was noted to have an expanding hematoma of the left side of the neck. The patient was noted to have an episode of what appeared to be possible seizure versus syncope upon ambulance services arrival to have an episode of syncope, versus seizure activity where his eyes rolled back in his head deviated to the right side associated with a brief episode of shaking. He was taken emergently to operating room for excision of left carotid artery, left CCA to ICA bypass with 6mm PTFE and evacuation of edema. DS: Diagnosis Discharge Diagnosis (1) MSSA (methicillin susceptible Staphylococcus aureus) infection: Status: Acute DS: Summary Mr. Boo a pleasant 57-year-old -[place]omin[place] male who was admitted to the hospital on 04/10/2018 due to left carotid artery bleeding noted by his fiance. Patient recently had left carotid surgery in [place] due to carotid stenosis. He was on Plavix due to stroke in 2017. When EMS arrived, patient was noted to have an expanding hematoma of the left side of the neck. Acute bleeding was controlled. Patient was taken to operating room emergently upon arrival for left carotid artery excision, left CCA to ICA bypass with 6 mm PTFE and evacuation of the hematoma. Infectious disease was consulted due to MSSA positive culture results from the neck wound. Blood cultures negative. Infectious disease recommended 6+ weeks of IV cefazolin. Vascular surgery evaluated patient on 04/16/2018 and recommended discharge with follow-up in the clinic in 2-3 weeks for suture removal as well as carotid duplex and wound check. Infected left carotid artery hematoma Left carotid artery stenosis s/p surgery. Hx of CVA -s/p emergent surgical intervention. -Cx grew MSSA. Pt is currently on Cefazolin per ID recs. -Blood cx is negative x 2 days. PICC line was placed on 04/18/2018. -Continue Aspirin, Plavix, Lipitor Diabetes mellitus Hypertension -Continue Metoprolol, Losartan, Amlodipine, HCTZ -Continue Levemir BID, sliding scale insulin. Full code. Ambulation, SCDs. Overall patient continued to remain afebrile, hemodynamically stable. Patient's fiancee is at bedside. I advised them to follow up with PCP, especially with regards to Diabetes mellitus. IF possible, it is also advised that he gets an evaluation by an Motion Study Engineer. Confirmed with CM regarding IV abx. Patient was given the meds for today and was subsequently discharged home with home health. Time Spent with Patient Total time spent providing and/or coordinating discharge services: Greater than 30 minutes Quality: VTE Deep Vein Thrombosis/Pulmonary Embolism Present on Admission: No Exam Narrative Exam Narrative: GENERAL: Well-nourished, well-developed patient. SKIN: Warm and dry. HEAD: Normocephalic. EYES: No scleral icterus. No injection or drainage. NECK: Supple, trachea midline. No JVD or lymphadenopathy. Left sided carotid surgery changes noted. No erythema or drainage. CARDIOVASCULAR: Regular rate and rhythm without murmurs, gallops, or rubs. RESPIRATORY: Breath sounds equal bilaterally. No accessory muscle use. GASTROINTESTINAL: Abdomen soft, non-tender, nondistended. MUSCULOSKELETAL: No cyanosis, or edema. BACK: Nontender without obvious deformity. No CVA tenderness. Results Labs on day of discharge: Labs from last 24 hours 04/18/18 04/18/18 04/18/18 19:50 17:08 11:22 Creatinine Estimated GFR POC Glucose 361 H 130 H 298 H 04/18/18 04/18/18 07:36 04:53 Creatinine 1.03 Estimated GFR Greater than 89 POC Glucose 254 H Preliminary micro results at discharge 04/10/18 23:56 Mycobacterial Culture - Preliminary Wound - Neck No growth in 1 week 04/10/18 23:56 Fungal Culture - Preliminary Wound - Neck No growth in 1 week 04/16/18 11:13 Aerobic Blood Culture - Preliminary Blood - Peripheral No growth in 2 days Anaerobic Blood Culture - Preliminary No growth in 2 days 04/16/18 11:08 Aerobic Blood Culture - Preliminary Blood - Peripheral No growth in 2 days Anaerobic Blood Culture - Preliminary No growth in 2 days Impressions ITS Impressions Neck CTA 04/10/18 21:58 CONCLUSION: 1. No significant carotid stenosis. 2. Large hematoma left neck. Discharge Plan Discharge Disposition Patient Disposition: Disch W/Home Health Service Discharge Condition Condition: Good Discharge Order Discharge Orders: Discharge Order (Routine); Ordered 04/18/18 Ordered By: Jodie Grove Discharge Details Anticipated Discharge Date: 04/18/18 Discharge Comment: Discharge once Home health and IV infusion arranged. Physicians Team Primary Care Provider: Primary Care Edita,Quin Attending Provider: Jodie Grove Other Providers: Ray Rubin ; Sherlyn Andrea ; [facility],Agency Rxs /Orders / Referrals /Forms Prescriptions: New hydrocodone-acetaminophen 5-325 mg Tablet 1 tab PO Q6H PRN (Reason: Pain Scale 1 To 10) Qty: 12 RF: 0 aspirin 81 mg Tablet,Chewable 81 mg PO DAILY Qty: 30 RF: 11 Continue atorvastatin 20 mg Tablet 20 mg PO DAILY RF: 0 insulin glargine [Lantus U-100 Insulin] 100 unit/mL Solution 15 unit SUBCUT DAILY RF: 0 metoprolol succinate 50 mg Tablet Extended Release 24 Hr 50 mg PO DAILY RF: 0 clopidogrel [Plavix] 75 mg Tablet 75 mg PO DAILY RF: 0 losartan-hydrochlorothiazide 100-25 mg Tablet 1 tab PO DAILY RF: 0 baclofen 10 mg Tablet 10 mg PO BID RF: 0 amlodipine 10 mg Tablet 10 mg PO DAILY RF: 0 metformin 1,000 mg Tablet 1,000 mg PO BID RF: 0 glipizide 5 mg Tablet 5 mg PO BID RF: 0 Ambulatory Orders / Order Sets / DME: Walker With Front Wheels (1 each) (Routine) Location: Determined by Patient Ordered By: Jodie Grove Referrals: Primary Care Quin Kohler [Primary Care Provider] - See Instructions Ray Rubin MD [Physician] - See Instructions (Carotid duplex at: 05/03/18 at 930a Clinic visit at: 05/04/18 at 10:30a) Discharge Instructions Additional Instructions: HOME HEALTH CARE HAS BEEN ARRANGED WITH [facility] [phone] , MEDICATIONS ARE BEING PROVIDED BY [facility], #[phone] Status ED Status: Left Department Discharge Information Discharge Date/Time: 04/18/18 21:25
== END 2018-04-18 21:25 | disposition home health service (06) | DRG 857 ==
LOC: NEPC 21:51 → NEDA 22:24 → HPAC 22:52 → NEDA 22:52 → HCVI 04-11 02:47 → HCPC 04-14 16:35
PROVIDERS: ADMIT Hospitalist; ATTEND Hospitalist
DX: Z79.4 Long term (current) use of insulin; E11.22 Type 2 diabetes mellitus with diabetic chronic kidney disease; E78.5 Hyperlipidemia, unspecified; D62 Acute posthemorrhagic anemia; T81.42XA Infection following a procedure, deep incisional surgical site, initial encounter; Z79.899 Other long term (current) drug therapy; Y83.8 Other surgical procedures as the cause of abnormal reaction of the patient, or of later complication, without mention of misadventure at the time of the procedure; E11.3599 Type 2 diabetes mellitus with proliferative diabetic retinopathy without macular edema, unspecified eye; E11.65 Type 2 diabetes mellitus with hyperglycemia; I97.618 Postprocedural hemorrhage of a circulatory system organ or structure following other circulatory system procedure; I69.320 Aphasia following cerebral infarction; E87.6 Hypokalemia; Y71.3 Surgical instruments, materials and cardiovascular devices (including sutures) associated with adverse incidents; B95.61 Methicillin susceptible Staphylococcus aureus infection as the cause of diseases classified elsewhere; I12.9 Hypertensive chronic kidney disease with stage 1 through stage 4 chronic kidney disease, or unspecified chronic kidney disease; I69.351 Hemiplegia and hemiparesis following cerebral infarction affecting right dominant side; N18.9 Chronic kidney disease, unspecified; Z79.02 Long term (current) use of antithrombotics/antiplatelets
CPT/HCPCS: 36430; 70498; 76937; 80048; 80053; 80202; 82565; 82805; 82948; 82962; 83735; 84100; 84484; 85014; 85025; 85027; 85384; 85610; 85730; 86403; 86850; 86900; 86901; 86920; 86923; 87015; 87040; 87070; 87102; 87116; 87147; 87176; 87186; 87205; 87206; 87641; 97110; 97116; 97162; 97166; 97530; 97535; 99291; C1768; C9248; J0330; J0690; J1170; J1644; J1815; J2270; J2370; J2405; J2543; J2704; J2720; J3010; J3370; J7030; J7040; J7050; J7120; P9016; Q9967